=== PATIENT | female | born 1935 | race Caucasian/White ===

== ENCOUNTER 2018-09-26 10:13 | Outpatient (CLI) | payer MEDICARE, BC ==
--- NOTE | 2018-09-26 11:00 | RAD ---
PA AND LATERAL CHEST: HISTORY: Bronchitis. COMPARISON: 09/19/2017 FINDINGS: A large hiatal hernia is again seen. The heart size is stable. No lobar consolidation, pneumothorac es, or pleural effusions are identified. Postop changes in the right shoulder are again seen. POS: [facility]
== END 2018-09-26 10:14 | disposition home or self-care (01) ==
LOC: BICRAD 10:13
PROVIDERS: ATTEND Family Medicine
DX: J40 Bronchitis, not specified as acute or chronic (principal); K44.9 Diaphragmatic hernia without obstruction or gangrene; Z98.890 Other specified postprocedural states
CPT/HCPCS: 71046

== ENCOUNTER 2019-01-15 14:42 | Outpatient (CLI) | payer MEDICARE, BC ==
--- NOTE | 2019-01-15 15:41 | RAD ---
TWO VIEWS OF THE CHEST: COMPARISON: 09/26/2018. HISTORY: Chest wall pain on the left side of the chest. FINDINGS: Two views of the chest show a normal-size cardiomediastinal silhouette. There is a large hiatal caity ia. There may be a small left pleural effusion. No consolidation is seen. IMPRESSION: 1. No evidence of acute cardiopulmonary disease. 2. Small left pleural effusion. 3. Large hiatal hernia. POS: [facility]
== END 2019-01-15 14:43 | disposition home or self-care (01) ==
LOC: BICRAD 14:42
PROVIDERS: ATTEND Family Medicine
DX: R07.89 Other chest pain (principal); J90 Pleural effusion, not elsewhere classified; K44.9 Diaphragmatic hernia without obstruction or gangrene
CPT/HCPCS: 71046

== ENCOUNTER 2019-04-30 14:58 | Inpatient (IN) | payer MEDICARE, BC ==
--- NOTE | 2019-04-30 15:57 | RAD ---
Portable upright frontal chest radiograph: 04/30/2019 COMPARISON: 12/06/2012 HISTORY: Shortness of breath, asthma FINDINGS: Prominent hiatal hernia again noted. Stable atherosclerotic calcification of the aortic arc h. No lobar consolidation or alveolar edema. IMPRESSION: Large hiatal hernia. No focal consolidation or alveolar edema.
[2019-04-30 16:05] LABS: #Eosinphils 0.8 thou/uL (0.0-0.7); #Lymphocytes 1.8 thou/uL (1.20-3.40); #Monocytes 0.5 thou/uL (0.11-0.59); #Neutrophils 3.5 thou/uL (1.40-6.50); %Basophils 0.6 % (0.0-1.0); %Eosinophils 12.1 % (0.0-10.0); %Lymphocytes 27.7 % (21.0-51.0); %Monocytes 6.9 % (0.0-10.0); %Neutrophils 52.8 % (42.0-75.0); Hemoglobin 11.7 g/dL (12.0-16.0); Mean Corpuscular HGB CONC 33.7 g/dL (32.0-36.0); Mean Corpuscular Hemoglobin 31.1 pg (27.0-31.0); Mean Corpuscular Volume 92.2 fL (78.0-98.0); Mean Platelet Volume 8.4 fL (7.4-10.4); Platelet Count 143 thou/uL (130-400); RBC Distribution Width 12.9 % (11.5-14.5); Red Blood Cell (RBC) Count 3.77 mill/uL (4.20-5.40); White Blood Cell (WBC) Count 6.6 thou/uL (4.8-10.8)
[2019-04-30] MEDS ORDERED: methylPREDNISolone Sod Succ/PF 125 MG/2 ML VIAL ONE (16:16)
[2019-04-30] MEDS ORDERED: Magnesium 2 GM/50 ML BAG (IN WATER) ONE (16:16)
[2019-04-30 16:51] LABS: ALT (SGPT) 11 U/L (8-55); AST (SGOT) 21 U/L (5-34); Alkaline Phosphatase 40 U/L (40-110); Anion Gap 15 mmol/L (10-20); BUN (Urea Nitrogen) 25 mg/dL (9.8-20.1); Bilirubin, Total 0.5 mg/dL (0.2-1.2); Calc. Creatinine Clearance 0 mL/min (70-130); Carbon Dioxide 20 mmol/L (23-31); Chloride 111 mmol/L (98-107); Estimated GFR-MDRD 38; Globulin 2.7 g/dL (2.4-3.5); Glucose 110 mg/dL (83-110); Magnesium 1.5 mg/dL (1.6-2.6); Potassium 5.1 mmol/L (3.5-5.1); Protein, Total 6.7 g/dL (6.0-8.3); Sodium 141 mmol/L (136-145)
[2019-04-30 17:31] LABS: Bacteria/HPF None Seen HPF (None Seen); Bilirubin Negative (Negative); Blood, Urine Negative (Negative); Clarity Clear (Clear); Glucose, Urine (Dipstick) Normal (Negative); Leukocyte 75 Leu/uL (Negative); Nitrite Negative (Negative); Protein, Urine (Dipstick) Negative (Neg-Trace); RBC/HPF 0-3 HPF (0-3); Urobilinogen Normal mg/dL (Less than 2); WBC/HPF 0-3 HPF (0-3)
[2019-04-30] MEDS ORDERED: Senokot S 8.6-50 MG TAB PO PRN (21:44)
[2019-04-30] MEDS ORDERED: Bacteriostatic Water 30 ML VIAL FS PRN (21:55)
[2019-05-01] MEDS ORDERED: Acetaminophen 325 MG TAB ONE ×2 (00:25→11:31)
--- NOTE | 2019-05-01 03:31 | HP ---
CHIEF COMPLAINT: Shortness of breath. HISTORY OF PRESENT ILLNESS: The patient is an 84-year-old female with a past medical history of diabetes, hypertension, COPD and asthma, who presents to the hospital with shortness of breath. The patient states that she was ill, had some-shortness of breath and chest congestion for about 3 days, went to the urgent care. Chest x-ray was negative and at that time, she was given some steroids and a Z-Cb and she did have a nebulizer at home, which she has been using; however, since her symptoms worsened, her PCP asked her to come into the hospital for further evaluation. She denies any chest tightness. She normally walks with a cane and does not require any oxygen at home. PAST MEDICAL HISTORY: Diabetes, hypertension, COPD. She has high cholesterol. She has urinary incontinence. She has had paroxysmal tachycardia. She has arthritis. She has bronchial asthma. PAST SURGICAL HISTORY: She has a cardiac stent last year, hysterectomy with total bilateral salpingo-oophorectomy, breast biopsy, cholecystectomy, and AV node ablation in 2012. FAMILY HISTORY: Father was diagnosed with cancer. Mother had heart disease. SOCIAL HISTORY: She was a former smoker for about 26 years. She quit long time ago. She smoked a pack a day. No drug use. No alcohol abuse. She stays with her . She is a full code. MEDICATIONS: She takes; 1. Aspirin 81 mg daily. 2. Dulera 200/5 one inhalation twice a day. 3. Fluticasone one puff to each nostril daily. 4. She is on albuterol as needed. 5. Lisinopril/hydrochlorothiazide 20/25 1-1/2 daily. 6. Singulair 10 mg daily. 7. Simvastatin 20 mg daily. 8. VESIcare 5 mg one tab daily. 9. Lyrica 75 mg twice a day. 10. Iron 1 tab daily. 11. Colchicine 0.6 mg one p.o. twice a day. ALLERGIES: SHE IS ALLERGIC TO PENICILLIN, SHE GETS SWELLING, AND PERCODAN. REVIEW OF SYSTEMS: All negative except for the ones mentioned above in the HPI. PHYSICAL EXAMINATION: VITAL SIGNS: Temperature 97.6, O2 saturation 98%. She was initially on BiPAP and then she is currently now on 2 to 3 L, respirations are 17, heart rate of 93, blood pressure 133/63. GENERAL: She is awake, alert, and oriented x3. Does not appear in distress. HEENT: Normocephalic, atraumatic. No lymphadenopathy noted. Pupils are equal and reactive to light. CV: S1 and S2 present. No murmurs, rubs, or gallops. LUNGS: She does have some expiratory wheezing to her left lung and mild rhonchi all over. ABDOMEN: Soft and nontender. Bowel sounds are present x2. EXTREMITIES: No edema. Pedal pulses are present x2. NEUROVASCULAR: No focal deficits noted. SKIN: No cuts, lesions, or bruises noted. LABORATORY RESULTS: Are as of the following. Her chest x-ray did not indicate any acute abnormalities or any consolidation. WBCs of 6.6, hemoglobin of 11.7, hematocrit of 34.8, platelets of 143. Chemistry; sodium of 141, potassium of 5.1, BUN of 25, and creatinine 1.32. Magnesium was 1.5, and her troponin x1 was negative. Her BNP was 76.8. ASSESSMENT AND PLAN: The patient is a very pleasant 84-year-old female, who presents to the hospital with complaints of shortness of breath. 1. Acute hypoxia. This is most likely secondary to chronic obstructive pulmonary disease exacerbation versus maybe some bronchitis versus possible pneumonia. However, she does not have a white count. She does have a significant cough. We will start her on some DuoNebs. We will start her on some steroids. I will also put her on Levaquin. She has recently been on azithromycin. I am not sure if she completed the course. 2. Chronic kidney disease. We will continue to monitor. 3. History of hypertension. We will continue her home medications. 4. Hyperlipidemia. We will continue her home medications. The patient in the ER was found to have oxygenation in the 80s and she was very short of breath. At this time, she was put on BiPAP for about 3 hours per Respiratory Therapy and then she has been weaned off to just 3 L nasal cannula and she appears to be more comfortable. 5. Deep venous thrombosis prophylaxis. We will put the patient on Lovenox. Of note, when I went to interview the patient, she was unable to tell me what really brought her in. However, she was able to answer all the questions. I am not sure if she has some component of cognitive impairment; however, that has not been listed in her past medical history. She would benefit from a screening for dementia as an outpatient. Job ID: [id number]
[2019-05-01 04:22] LABS: #Lymphocytes 0.5 thou/uL (1.20-3.40); #Neutrophils 2.8 thou/uL (1.40-6.50); %Basophils 0.2 % (0.0-1.0); %Eosinophils 0.8 % (0.0-10.0); %Lymphocytes 14.6 % (21.0-51.0); %Neutrophils 83.5 % (42.0-75.0); Hemoglobin 11.3 g/dL (12.0-16.0); Mean Corpuscular HGB CONC 33.9 g/dL (32.0-36.0); Mean Corpuscular Hemoglobin 31.3 pg (27.0-31.0); Mean Corpuscular Volume 92.4 fL (78.0-98.0); Mean Platelet Volume 8.2 fL (7.4-10.4); Platelet Count 117 thou/uL (130-400); RBC Distribution Width 12.6 % (11.5-14.5); White Blood Cell (WBC) Count 3.3 thou/uL (4.8-10.8)
[2019-05-01 04:36] LABS: Anion Gap 14 mmol/L (10-20); BUN (Urea Nitrogen) 15 mg/dL (9.8-20.1); Calc. Creatinine Clearance 51 mL/min (70-130); Calcium 9.1 mg/dL (7.8-10.44); Carbon Dioxide 21 mmol/L (23-31); Chloride 110 mmol/L (98-107); Estimated GFR-MDRD 50; Glucose 142 mg/dL (83-110); Magnesium 1.8 mg/dL (1.6-2.6); Potassium 4.8 mmol/L (3.5-5.1); Sodium 140 mmol/L (136-145)
[2019-05-01] MEDS ORDERED: predniSONE 50 MG TAB PO SCH (08:00)
[2019-05-01] MEDS ORDERED: methylPREDNISolone Sod Succ 40 MG VIAL ONE (10:27)
[2019-05-01] MEDS ORDERED: Aspirin Chewable 81 MG TAB ONE (10:27)
[2019-05-01] MEDS ORDERED: Enoxaparin Sodium 40 MG/0.4 ML SYRINGE ONE (10:27)
[2019-05-01] MEDS: Aspirin 81 mg Enteric Coated Tablet PO SCH (11:21)
[2019-05-01] MEDS: Enoxaparin Sodium 40 MG/0.4 ML SYRINGE SC SCH (11:22)
[2019-05-01] MEDS: methylPREDNISolone Sod Succ 40 MG VIAL IVP SCH (11:22)
[2019-05-01] MEDS: Colchicine 0.6 MG TAB PO SCH ×2 (11:22→21:31)
[2019-05-01] MEDS: Pregabalin 75 MG CAP PO SCH ×2 (11:23→21:30)
[2019-05-01] MEDS: Trospium 20 MG TAB PO SCH ×2 (11:24→21:30)
[2019-05-01] MEDS: Acetaminophen 325 MG TAB PO PRN ×2 (11:25→16:38)
[2019-05-01 16:34] VITALS: BMI 31.3
[2019-05-01] MEDS ORDERED: FLU VACC TS2019-20(65YR UP)/PF 180 MCG/0.5 ML SYRINGE IM ONE (17:00)
[2019-05-01] MEDS ORDERED: Atorvastatin Calcium 10 MG TAB PO SCH (21:00)
[2019-05-01] MEDS ORDERED: Montelukast Sodium 10 mg Tablet PO SCH (21:00)
[2019-05-02] MEDS: Aspirin 81 mg Enteric Coated Tablet PO SCH (09:43)
[2019-05-02] MEDS: Colchicine 0.6 MG TAB PO SCH (09:43)
[2019-05-02] MEDS: Trospium 20 MG TAB PO SCH (09:43)
[2019-05-02] MEDS: methylPREDNISolone Sod Succ 40 MG VIAL IVP SCH (09:43)
[2019-05-02] MEDS: Enoxaparin Sodium 40 MG/0.4 ML SYRINGE SC SCH (09:44)
[2019-05-02] MEDS: Pregabalin 75 MG CAP PO SCH (10:06)
[2019-05-02 11:23] VITALS: BP 133/60; TEMP 98.5
--- NOTE | 2019-05-04 05:08 | PQF ---
CALEB BARRAGAN KARISHMA [id number] [facility] [id number] CLINICAL DOCUMENTATION CLARIFICATION FORM: POST DISCHARGE Addendum to original discharge summary date: ____ Late entry note date: __ DATE: 05/04/19 ATTN: Yuli Lee Please exercise your independent, professional judgment in responding to the clarification form. Clinical indicators are provided on the bottom of this form for your review Please check appropriate box(s): [ x] Acute Respiratory Failure with Hypoxia [ ] Acute On Chronic Respiratory Failure with Hypoxia [ ] ARDS (Acute Respiratory Distress Syndrome) [ ] Chronic Respiratory Failure only with Hypoxia [ ] Hypoxia [ ] Other diagnosis [ ] Unable to determine In addition, please specify: Present on Admission (POA): [ x ] Yes [ ] No [ ] Unable to determine For continuity of documentation, please document condition throughout progress notes and discharge summary. Thank You. CLINICAL INDICATORS - SIGNS / SYMPTOMS / LABS ED Provider p1 04/30 Pt presents for evaluation of SOB ED Provider p2 04/30 Vital Sign : BP 96/65, Pulse 109, Resp 26 ED Provider p3 04/30 Pt had severe dyspnea and audible wheezing and crackles bilaterally ED Provider p4 04/30 - Primary Diagnosis COPD exacerbation, Asthma Exacerbation, Respiratory Distress H&P p1 04/30 Dr Dangelo Acute hypoxia mist likely secondary tp COPD exacerbation vs some bronchitis vs possible Pneumonia RISK FACTORS ED Provider p1 04/30 84 year-old Female ED Provider p1 04/30 COPD ED Provider p1 04/30 Asthma H&P p1 04/30 Former Smoker TREATMENTS: ED Provider p2 04/30 On Bipap SEP 17 Duoneb 3ml via Nebulize SEP 17 IV Levaquin (This form is maintained as a part of the permanent medical record) 2014 [employer] All Rights Reserved [email or web address] [not provided] MTDD
--- NOTE | 2019-05-04 05:15 | PQF ---
CALEB BARRAGAN KARISHMA [id number] [facility] [id number] CLINICAL DOCUMENTATION CLARIFICATION FORM: POST DISCHARGE Addendum to original discharge summary date: ____ Late entry note date: __ DATE: 05/04/19 ATTN: Yuli Moore Please exercise your independent, professional judgment in responding to the clarification form. Clinical indicators are provided on the bottom of this form for your review In your clinical opinion based on clinical findings below, can you please specify the etiology of Hypoxia if due to: Please check appropriate box(s): [ ] COPD Exacerbation [ ] Asthma Exacerbation [ ] Pneumonia [ ] Other condition, please specify: [x ] Unable to determine For continuity of documentation, please document condition throughout progress notes and discharge summary. Thank You. CLINICAL INDICATORS - SIGNS / SYMPTOMS / LABS ED Provider p1 04/30 Pt presents for evaluation of SOB ED Provider p2 04/30 Vital Sign : BP 96/65, Pulse 109, Resp 26 ED Provider p3 04/30 Pt had severe dyspnea and audible wheezing and crackles bilaterally ED Provider p4 04/30 - Primary Diagnosis COPD exacerbation, Asthma Exacerbation, Respiratory Distress H&P p1 04/30 Dr Dangelo Acute hypoxia mist likely secondary tp COPD exacerbation vs some bronchitis vs possible Pneumonia RISK FACTORS ED Provider p1 04/30 84 year-old Female ED Provider p1 04/30 COPD ED Provider p1 04/30 Asthma H&P p1 04/30 Former Smoker TREATMENTS: ED Provider p2 04/30 On Bipap SEP 17 Duoneb 3ml via Nebulize SEP 17 IV Levaquin (This form is maintained as a part of the permanent medical record) 2014 [employer]. All Rights Reserved [email or web address] [not provided] MTDD
== END 2019-05-02 14:33 | disposition home or self-care (01) | DRG 189 ==
LOC: ERS 14:58 → ERHOLD 19:51 → 2NO 05-01 15:55
PROVIDERS: ADMIT Family Medicine; ATTEND Family Medicine
PROC: 5A09357 Assistance with Respiratory Ventilation, Less than 24 Consecutive Hours, Continuous Positive Airway Pressure (ICD-10-PCS; principal; 2019-04-30)
DX: J96.01 Acute respiratory failure with hypoxia (principal); E78.00 Pure hypercholesterolemia, unspecified; M19.90 Unspecified osteoarthritis, unspecified site; N18.9 Chronic kidney disease, unspecified; I12.9 Hypertensive chronic kidney disease with stage 1 through stage 4 chronic kidney disease, or unspecified chronic kidney disease; J44.9 Chronic obstructive pulmonary disease, unspecified; E78.5 Hyperlipidemia, unspecified; Z79.82 Long term (current) use of aspirin; Z79.899 Other long term (current) drug therapy; Z95.5 Presence of coronary angioplasty implant and graft; Z90.710 Acquired absence of both cervix and uterus; Z90.722 Acquired absence of ovaries, bilateral; Z87.891 Personal history of nicotine dependence; Z88.0 Allergy status to penicillin; Z88.8 Allergy status to other drugs, medicaments and biological substances
CPT/HCPCS: 36415; 36416; 71045; 80048; 80053; 81003; 81015; 83735; 83880; 84484; 85025; 87040; 87086; 87149; 87804; 90471; 90662; 93005; 94640; 94660; 94760; 96365; 96367; 96375; 99213; 99214; G0008; G0463; J1650; J1956; J2920; J2930; J3475; J7620

== ENCOUNTER 2019-05-15 04:55 | Inpatient (IN) | payer MEDICARE, BC ==
[2019-05-15] MEDS ORDERED: Albuterol Sulfate 2.5 mg/0.5 ml Neb ONE (05:03)
[2019-05-15] MEDS ORDERED: Albuterol Sulfate 2.5 mg/3 ml Neb ONE (05:03)
[2019-05-15] MEDS ORDERED: methylPREDNISolone Sod Succ/PF 125 MG/2 ML VIAL ONE (05:04)
[2019-05-15 05:21] LABS: #Basophils 0.1 thou/uL (0.0-0.2); #Eosinphils 1.2 thou/uL (0.0-0.7); #Lymphocytes 1.7 thou/uL (1.20-3.40); #Monocytes 0.5 thou/uL (0.11-0.59); #Neutrophils 4.4 thou/uL (1.40-6.50); %Basophils 0.9 % (0.0-1.0); %Eosinophils 14.8 % (0.0-10.0); %Lymphocytes 21.5 % (21.0-51.0); %Monocytes 6.4 % (0.0-10.0); %Neutrophils 56.5 % (42.0-75.0); Hemoglobin 12.3 g/dL (12.0-16.0); Mean Corpuscular HGB CONC 33.3 g/dL (32.0-36.0); Mean Corpuscular Hemoglobin 31.4 pg (27.0-31.0); Mean Corpuscular Volume 94.1 fL (78.0-98.0); Mean Platelet Volume 7.7 fL (7.4-10.4); Platelet Count 145 thou/uL (130-400); RBC Distribution Width 12.7 % (11.5-14.5); Red Blood Cell (RBC) Count 3.91 mill/uL (4.20-5.40); White Blood Cell (WBC) Count 7.9 thou/uL (4.8-10.8)
[2019-05-15] MEDS ORDERED: Acetaminophen 500 MG TAB ONE (05:42)
[2019-05-15 05:51] LABS: ALT (SGPT) 10 U/L (8-55); AST (SGOT) 14 U/L (5-34); Albumin 4.1 g/dL (3.4-4.8); Alkaline Phosphatase 43 U/L (40-110); Anion Gap 14 mmol/L (10-20); BUN (Urea Nitrogen) 19 mg/dL (9.8-20.1); Bilirubin, Total 0.6 mg/dL (0.2-1.2); CK (CPK) 63 U/L (29-168); Calc. Creatinine Clearance 0 mL/min (70-130); Calcium 9.3 mg/dL (7.8-10.44); Carbon Dioxide 24 mmol/L (23-31); Chloride 110 mmol/L (98-107); Estimated GFR-MDRD 38; Globulin 2.6 g/dL (2.4-3.5); Glucose 110 mg/dL (83-110); Potassium 4.6 mmol/L (3.5-5.1); Protein, Total 6.7 g/dL (6.0-8.3); Sodium 143 mmol/L (136-145)
--- NOTE | 2019-05-15 08:01 | HP ---
PRIMARY CARE PROVIDER: Don Whiet MD. HISTORY OF PRESENT ILLNESS: Referred to the [facility] hospitalist Service by [facility]. The patient recently hospitalized with COPD exacerbation. On discharge, she was seen by her PCP, got antibiotics, steroids, nebulizers. She continues to complain of wheezing, shortness of breath. No productive cough. No fever, no chills. PAST MEDICAL HISTORY: Diabetes mellitus type 2, hypertension, COPD, elevated cholesterol, history of paroxysmal atrial tachycardia. PAST SURGICAL HISTORY: She had a cardiac stent in the recent past, AV jose angel ablation in 2012, cholecystectomy, breast biopsy, hysterectomy with bilateral salpingo-oophorectomy. FAMILY HISTORY: Father diagnosed with cancer. Mother had heart disease. SOCIAL HISTORY: Former smoker, quit long time ago. No drugs. No alcohol. Lives with her . Full code status. is surrogate decision maker. CURRENT MEDICATIONS: 1. Aspirin 81 mg a day. 2. Dulera 200/5 two puffs twice a day. 3. Lisinopril hydrochlorothiazide 20/25 one-half tablet a day. 4. Singulair 10 mg a day. 5. VESIcare 5 mg twice a day. 6. Nabumetone 500 mg twice a day. 7. Lyrica 75 mg twice a day. 8. Nexium 40 mg a day. 9. Ferrous sulfate 325 mg a day. 10. Colcrys 0.6 mg twice a day. 11. Nebulizers every 3 hours p.r.n. ALLERGIES: PENICILLIN AND PERCODAN. REVIEW OF SYSTEMS: GENERAL: She has a headache at the present time. Has occasional lightheaded spells. No fainting. EYES: She has had a history of occasional double vision, none recently. Wears glasses. EARS, NOSE, AND THROAT: Hard of hearing. No pain or drainage from her ears. No nasal bleeding. No trouble swallowing. No oral pain. CARDIAC: No chest pain, paroxysmal nocturnal dyspnea, orthopnea. RESPIRATIONS: See present illness. GASTROINTESTINAL: No nausea, vomiting, diarrhea, or constipation. GENITOURINARY: She is incontinent. No bleeding. No dysuria. MUSCULOSKELETAL: No pain or swelling in her arms or legs. NEUROLOGIC: No strokes, seizures, or focal weakness. PSYCHIATRIC: No anxiety or depression. SKIN: No bruising, bleeding or rash. HEME/LYMPH: No tender or swollen lymph nodes in axilla, inguinal, cervical area. PHYSICAL EXAMINATION: VITAL SIGNS: Blood pressure 168/72, pulse 88, respirations 20 to 32, temperature 98.5, 95% saturation on 4 L O2. HEAD, EYES, EARS, NOSE, AND THROAT: Pupils are equal, round, and reactive. Extraocular movements are intact. Sclerae are white. Tympanic membranes clear. Nose clear. Oral mucous membranes are wet. Dental hygiene is adequate. NECK: Supple without jugular venous distention, adenopathy, or thyromegaly. She has very loud stridor across her neck that radiates into her chest. RESPIRATORY: No dullness to percussion. No focal findings. She has diffuse wheezing which may in fact be radiated stridor from her neck, it is difficult to ascertain. HEART: Regular rate and rhythm. First and second second heart sounds clear. No murmurs or gallops. ABDOMEN: Soft, bowel sounds are normal. There is no hepatosplenomegaly. No mass. No rebound. EXTREMITIES: Reveal no cyanosis, clubbing, or edema. Pulses, carotid, radial, femoral and dorsalis pedis pulses palpable and symmetric. SKIN: Warm and dry without bruises or rash. HEME/LYMPH: No tender or swollen lymph nodes in axilla, inguinal, cervical area. NEUROLOGIC: Cranial nerves 2 through 12 are intact. Moves all extremities. Sensations intact. IMAGING STUDIES: Chest x-ray reviewed by me, hyperinflation with no infiltrate, CHF. EKG reviewed by me, sinus rhythm, Q-waves in the anterior precordial leads consistent with old anterior myocardial infarction, left axis deviation. LABORATORY DATA: Comprehensive metabolic profile: Creatinine 1.33, chloride 110, otherwise normal. Cardiac enzymes normal. BNP 124. CBCs unremarkable. ADMITTING DIAGNOSES: 1. Acute respiratory failure with hypoxemia. 2. Chronic obstructive pulmonary disease exacerbation. 3. Stridor across neck. 4. Hypertension. 5. Coronary artery disease. 6. Chronic back pain. PLAN: Steroids, antibiotics, nebs, Pulmonology consult. Continue home medicines. Job ID: [id number]
[2019-05-15 08:06] VITALS: BMI 30.6
[2019-05-15] MEDS ORDERED: Albuterol Sulfate 2.5 mg/3 ml Neb NEB PRN (08:06)
[2019-05-15] MEDS ORDERED: Zolpidem Tartrate 5 MG TAB PO PRN (08:06)
[2019-05-15] MEDS ORDERED: Ondansetron ODT 4 MG TAB PO PRN (08:06)
[2019-05-15] MEDS ORDERED: Bacteriostatic Water 30 ML VIAL FS PRN (08:18)
--- NOTE | 2019-05-15 09:22 | RAD ---
FRONTAL VIEW CHEST: INDICATIONS: Dyspnea. COMPARISON: 04/30/2019 FINDINGS: Redemonstration of a hiatal hernia superimposed upon grossly stable sized cardiac silhouette. There i s interstitial prominence of each lung. Vascular calcification is again seen. IMPRESSION: Stable chest. POS: [facility]
[2019-05-15] MEDS: Albuterol Sulfate 2.5 mg/3 ml Neb NEB SCH ×2 (10:05→11:09)
[2019-05-15] MEDS ORDERED: methylPREDNISolone Sod Succ 40 MG VIAL IVP SCH (12:00)
[2019-05-15] MEDS: Azithromycin 500 MG in Sodium Chloride 0.9% 250 ML 250 ML IVPB SCH (12:00)
[2019-05-15] MEDS: Enoxaparin Sodium 40 MG/0.4 ML SYRINGE SC SCH (12:02)
[2019-05-15] MEDS: methylPREDNISolone Sod Succ 40 MG VIAL IVP SCH ×2 (12:02→19:27)
[2019-05-15] MEDS: Acetaminophen 325 MG TAB PO PRN ×2 (12:20→19:27)
--- NOTE | 2019-05-15 13:28 | CON ---
DATE OF CONSULTATION: HISTORY OF PRESENT ILLNESS: Albina Pennington is an 84-year-old female, who was brought to the hospital with shortness of breath after she experienced no improvement at home with a nebulizer machine. She had quit smoking 40 years ago and has severe limitation to activities. She can barely walk, on a good day 40 feet without getting extremely dyspneic. She denies any chest pain, chills, sweats, or hemoptysis. She has recently came back from [place] after she saw a commodity analyst for a hiatal hernia related issues. PAST MEDICAL HISTORY: Pertinent for COPD, chronic asthma, diabetes, hypertension, unknown musculoskeletal problem, ataxia, previous spinal stenosis. PAST SURGICAL HISTORY: Including cholecystectomy, stent, colonoscopy. HOME MEDICATIONS: Include 1. Lisinopril 05/04. 2. Flonase. 3. Nexium 25. 4. Colchicine 0.6. 5. Aspirin. 6. Lyrica 75. 7. Nabumetone 500. 8. Singulair 10. 9. Symbicort. ALLERGIES: PENICILLIN. REVIEW OF SYSTEMS: Otherwise, 10-point negative. PHYSICAL EXAMINATION: VITAL SIGNS: Saturations are 98% on 4 L, respiratory rate 20, temperature 97, blood pressure 160/75. CHEST: Decreased breath sounds without any wheezing. CARDIAC: Normal S1, S2. No gallops. ABDOMEN: No masses. LABORATORY DATA: Unremarkable. Chest x-ray shows no acute infiltrates. BNP is normal. IMPRESSION: Chronic obstructive pulmonary disease, respiratory failure, former smoker, asthma, unknown musculoskeletal problem, carotid disease and dysphagia. I have added Dulera to her present treatment. Try and do a bedside PFT. May consider noninvasive ventilation at home depending upon the PFT. Consultation note, 70 minutes, 50% direct patient care. Job ID: [id number]
[2019-05-15] MEDS: Mometasone/Formoterol 120 PUFF INHALER INH SCH (18:34)
[2019-05-16] MEDS: methylPREDNISolone Sod Succ 40 MG VIAL IVP SCH ×4 (00:01→17:43)
[2019-05-16 06:14] LABS: #Basophils 0.1 thou/uL (0.0-0.2); #Eosinphils 0.1 thou/uL (0.0-0.7); #Lymphocytes 0.8 thou/uL (1.20-3.40); #Monocytes 0.1 thou/uL (0.11-0.59); #Neutrophils 6.8 thou/uL (1.40-6.50); %Basophils 0.7 % (0.0-1.0); %Eosinophils 0.7 % (0.0-10.0); %Monocytes 1.7 % (0.0-10.0); %Neutrophils 86.9 % (42.0-75.0); Hemoglobin 11.2 g/dL (12.0-16.0); Mean Corpuscular HGB CONC 33.8 g/dL (32.0-36.0); Mean Corpuscular Hemoglobin 31.6 pg (27.0-31.0); Mean Corpuscular Volume 93.5 fL (78.0-98.0); Mean Platelet Volume 8.2 fL (7.4-10.4); Platelet Count 140 thou/uL (130-400); RBC Distribution Width 12.8 % (11.5-14.5); Red Blood Cell (RBC) Count 3.55 mill/uL (4.20-5.40); White Blood Cell (WBC) Count 7.8 thou/uL (4.8-10.8)
[2019-05-16 06:31] LABS: Anion Gap 12 mmol/L (10-20); BUN (Urea Nitrogen) 25 mg/dL (9.8-20.1); Calc. Creatinine Clearance 47 mL/min (70-130); Calcium 8.8 mg/dL (7.8-10.44); Carbon Dioxide 22 mmol/L (23-31); Chloride 111 mmol/L (98-107); Estimated GFR-MDRD 51; Glucose 144 mg/dL (83-110); Potassium 4.4 mmol/L (3.5-5.1); Sodium 141 mmol/L (136-145)
[2019-05-16] MEDS: Mometasone/Formoterol 120 PUFF INHALER INH SCH ×2 (06:52→19:46)
[2019-05-16] MEDS: Acetaminophen 325 MG TAB PO PRN ×2 (08:03→17:51)
[2019-05-16] MEDS: Enoxaparin Sodium 40 MG/0.4 ML SYRINGE SC SCH (08:04)
--- NOTE | 2019-05-16 09:48 | PDOC.HOSPP ---
- Subjective Encounter Date: 05/16/19 Encounter Time: 09:46 Subjective: much less sob - Objective Vital Signs & Weight: Vital Signs (12 hours) Temp Pulse Resp BP Pulse Ox 05/16/19 07:39 98.2 F 97 22 H 153/77 H 94 L 05/16/19 06:56 98 05/16/19 06:55 91 20 98 05/16/19 06:52 91 20 98 05/16/19 04:07 97.9 F 87 20 157/73 H 100 05/15/19 23:55 98.3 F 92 20 151/77 H 100 Weight Weight 162 lb 3.2 oz I&O: 05/15/19 05/16/19 05/17/19 06:59 06:59 06:59 Intake Total 360 Balance 360 Result Diagrams: 05/16/19 05:48 05/16/19 05:48 Hospitalist ROS - Medication Medications: Active Medications Generic Name Dose Route Start Last Admin Trade Name Freq PRN Reason Stop Dose Admin Acetaminophen 650 mg 05/15/19 08:06 05/16/19 08:03 Tylenol PO 650 mg Q4H PRN Administration Headache/Fever/Mild Pain (1-3) Albuterol/Ipratropium 3 ml 05/15/19 13:00 05/16/19 06:55 Duoneb NEB 3 ml [id number] JIGNESH Administration Enoxaparin Sodium 40 mg 05/15/19 09:00 05/16/19 08:04 Lovenox SC 40 mg 0900 JIGNESH Administration Azithromycin 500 mg/ Sodium 250 mls @ 250 mls/hr 05/15/19 09:00 05/15/19 12: 00 Chloride IVPB 250 mls 0900 JIGNESH Administration Methylprednisolone Sodium Succinate 40 mg 05/15/19 12:00 05/16/19 05:47 Solu-Medrol IVP 40 mg Q6HR JIGNESH Administration Mometasone Furoate/Formoterol Fumar 2 puff 05/15/19 18:30 05/16/19 06:52 Dulera 200 Mcg/5 Mcg Inhaler INH 2 puff BID-RT JIGNESH Administration Sterile Water 1 ml 05/15/19 08:18 05/16/19 00:00 Bacteriostatic Water FS 1 ml PRN PRN Administration RECONSTITUTION - Exam General Appearance: NAD ENT - other findings: no stridor Neck: no JVD Heart: RRR, no murmur Respiratory: CTAB Gastrointestinal: soft, normal bowel sounds Extremities: no edema Hosp A/P (1) Acute respiratory failure with hypoxia Code(s): J96.01 - ACUTE RESPIRATORY FAILURE WITH HYPOXIA Status: Acute (2) COPD exacerbation Code(s): J44.1 - CHRONIC OBSTRUCTIVE PULMONARY DISEASE W (ACUTE) EXACERBATION Status: Acute (3) CAD (coronary artery disease) Code(s): I25.10 - ATHSCL HEART DISEASE OF [place] CORONARY ARTERY W/O ANG PCTRS Status: Acute Qualifiers: Coronary Disease-Associated Artery/Lesion type: [place] artery [place] vs. transplanted heart: [place] heart Associated angina: without angina Qualified Code(s): I25.10 - Atherosclerotic heart disease of [place] coronary artery without angina pectoris (4) Stridor Code(s): R06.1 - STRIDOR Status: Acute - Plan stridor resolved, off EDNA x 24 hrs-suspect angioedma due to EDNA cont nebs , steroids, etc discuussed with Pulmonology
[2019-05-16] MEDS: Azithromycin 500 MG in Sodium Chloride 0.9% 250 ML 250 ML IVPB SCH (10:03)
--- NOTE | 2019-05-16 10:10 | PRG ---
DATE OF SERVICE: 05/16/2019 SUBJECTIVE: This morning, she is somewhat better. OBJECTIVE: VITAL SIGNS: Temperature 98, pulse 97, respiratory rate _16 appears to be 1 L, blood pressure _120\76. CHEST: Minimal expiratory wheezing. CARDIAC: Normal S1 and S2. No gallops. ABDOMEN: No masses. LABORATORY DATA: Unremarkable. PFT bedside showed an FEV1 of 54% consistent with moderately severe COPD. Chest x-ray shows barely cardiomegaly. IMPRESSION: Chronic obstructive pulmonary disease, severe deconditioning. PLAN: Continue PT, supportive care. Switch over to oral prednisone. Disposition, home in the next several days hopefully. Job ID: [id number] [facility]
[2019-05-16] MEDS: Pregabalin 75 MG CAP PO SCH (21:08)
[2019-05-16] MEDS: Nabumetone 500 MG TAB PO SCH (21:08)
[2019-05-16] MEDS: Colchicine 0.6 MG TAB PO SCH (21:08)
[2019-05-16] MEDS: Trospium 20 MG TAB PO SCH (21:09)
[2019-05-17] MEDS: methylPREDNISolone Sod Succ 40 MG VIAL IVP SCH ×2 (00:26→06:02)
[2019-05-17] MEDS: Mometasone/Formoterol 120 PUFF INHALER INH SCH ×2 (07:12→19:20)
[2019-05-17] MEDS: Aspirin 81 mg Enteric Coated Tablet PO SCH (08:18)
[2019-05-17] MEDS: Colchicine 0.6 MG TAB PO SCH ×2 (08:18→21:17)
[2019-05-17] MEDS: Ferrous Sulfate 325 MG TAB PO SCH (08:18)
[2019-05-17] MEDS: Trospium 20 MG TAB PO SCH ×2 (08:18→21:18)
[2019-05-17] MEDS: Nabumetone 500 MG TAB PO SCH ×2 (08:18→21:17)
[2019-05-17] MEDS: Pregabalin 75 MG CAP PO SCH ×2 (08:19→21:17)
[2019-05-17] MEDS: Enoxaparin Sodium 40 MG/0.4 ML SYRINGE SC SCH (08:20)
[2019-05-17] MEDS: Azithromycin 500 MG in Sodium Chloride 0.9% 250 ML 250 ML IVPB SCH (08:20)
[2019-05-17] MEDS ORDERED: Non-Formulary Item 1 EACH (Esomeprazole Magnesium [Nexium] 20 MG) PO SCH (09:00)
--- NOTE | 2019-05-17 09:53 | PRG ---
DATE OF SERVICE: 05/17/2019 SUBJECTIVE: Albina Pennington is better this morning. She is walking in the halls without being short of breath. OBJECTIVE: VITAL SIGNS: Sats are 94% RA blood pressure 120/65. CHEST: No wheezing or stridor. CARDIAC: Normal S1 and S2. No gallops. ABDOMEN: No mass. IMPRESSION: 1. Chronic obstructive pulmonary disease. 2. Former smoker. 3. Severe deconditioning. 4. Encephalopathy. PLAN: She can be discharged home on oral medication. Follow up in the office in a month. Job ID: [id number] MTDD
--- NOTE | 2019-05-17 10:20 | PDOC.HOSPP ---
- Subjective Encounter Date: 05/17/19 Encounter Time: 10:17 Subjective: no sob - Objective Vital Signs & Weight: Vital Signs (12 hours) Temp Pulse Resp BP BP Pulse Ox 05/17/19 08:00 98.1 F 80 20 121/65 95 05/17/19 07:14 98 05/17/19 07:11 71 20 98 05/17/19 04:00 97.7 F 80 18 123/72 98 05/17/19 00:38 81 16 05/17/19 00:00 98.2 F 81 18 136/68 100 Weight Weight 162 lb 3.2 oz I&O: 05/16/19 05/17/19 05/18/19 06:59 06:59 06:59 Intake Total 360 240 Balance 360 240 Result Diagrams: 05/16/19 05:48 05/16/19 05:48 Hospitalist ROS - Medication Medications: Active Medications Generic Name Dose Route Start Last Admin Trade Name Freq PRN Reason Stop Dose Admin Acetaminophen 650 mg 05/15/19 08:06 05/16/19 17:51 Tylenol PO 650 mg Q4H PRN Administration Headache/Fever/Mild Pain (1-3) Albuterol/Ipratropium 3 ml 05/15/19 13:00 05/17/19 07:11 Duoneb NEB 3 ml [id number] JIGNESH Administration Aspirin 81 mg 05/17/19 09:00 05/17/19 08:18 Ecotrin PO 81 mg DAILY JIGNESH Administration Colchicine 0.6 mg 05/16/19 21:00 05/17/19 08:18 Colchicine PO 0.6 mg BID JIGNESH Administration Enoxaparin Sodium 40 mg 05/15/19 09:00 05/17/19 08:20 Lovenox SC 40 mg 09 JIGNESH Administration Ferrous Sulfate 325 mg 05/17/19 09:00 05/17/19 08:18 Feosol PO 325 mg DAILY JIGNESH Administration Mometasone Furoate/Formoterol Fumar 2 puff 05/15/19 18:30 05/17/19 07:12 Dulera 200 Mcg/5 Mcg Inhaler INH 2 puff BID-RT JIGNESH Administration Nabumetone 500 mg 05/16/19 21:00 05/17/19 08:18 Relafen PO 500 mg BID JIGNESH Administration Pantoprazole Sodium 40 mg 05/17/19 09:00 05/17/19 08:18 Protonix PO 40 mg DAILY JIGNESH Administration Pregabalin 75 mg 05/16/19 21:00 05/17/19 08:19 Lyrica PO 75 mg BID JIGNESH Administration Sodium Chloride 10 ml 05/16/19 21:00 05/17/19 08:19 Flush - Normal Saline IVF 10 ml Q12HR JIGNESH Administration Sterile Water 1 ml 05/15/19 08:18 05/16/19 00:00 Bacteriostatic Water FS 1 ml PRN PRN Administration RECONSTITUTION Trospium 20 mg 05/16/19 21:00 05/17/19 08:18 Trospium PO 20 mg BID JIGNESH Administration - Exam ENT - other findings: no stridor Heart: RRR, murmur present, III/IV Respiratory: CTAB Gastrointestinal: soft, normal bowel sounds Extremities: no edema Hosp A/P (1) Acute respiratory failure with hypoxia Code(s): J96.01 - ACUTE RESPIRATORY FAILURE WITH HYPOXIA Status: Acute (2) COPD exacerbation Code(s): J44.1 - CHRONIC OBSTRUCTIVE PULMONARY DISEASE W (ACUTE) EXACERBATION Status: Acute (3) CAD (coronary artery disease) Code(s): I25.10 - ATHSCL HEART DISEASE OF [place] CORONARY ARTERY W/O ANG PCTRS Status: Acute Qualifiers: Coronary Disease-Associated Artery/Lesion type: [place] artery [place] vs. transplanted heart: [place] heart Associated angina: without angina Qualified Code(s): I25.10 - Atherosclerotic heart disease of [place] coronary artery without angina pectoris (4) Stridor Code(s): R06.1 - STRIDOR Status: Resolved - Plan stridor resolved, off EDNA x 24 hrs-suspect angioedma due to EDNA po antibx, prednisone, nebs discussed with Pulmonology
[2019-05-17] MEDS: Acetaminophen 325 MG TAB PO PRN (14:52)
--- NOTE | 2019-05-17 15:47 | PDOC.EVN ---
Event Note - Event Note Event Note: sat ok on RA. DC Jordan if still OK
[2019-05-18] MEDS ORDERED: predniSONE 20 MG TAB PO SCH (08:00)
[2019-05-18] MEDS: Mometasone/Formoterol 120 PUFF INHALER INH SCH (08:22)
[2019-05-18 08:43] VITALS: TEMP 98.3
[2019-05-18] MEDS ORDERED: Azithromycin 250 MG TAB PO SCH (09:00)
--- NOTE | 2019-05-18 09:16 | PRG ---
DATE OF SERVICE: 05/18/2019 SUBJECTIVE: This morning, she is better. She has less cough and less shortness of breath. OBJECTIVE: VITAL SIGNS: Saturations are 90% on room air, respirations 16, temperature 98, blood pressure 122/63. CHEST: Occasional inspiratory wheeze. CARDIAC: Normal S1 and S2. ABDOMEN: Negative mass. Soft. IMPRESSION: Chronic obstructive pulmonary disease, former smoker, bronchitis. PLAN: She can be discharged home any time. Follow up in the office in several weeks. Job ID: [id number]
[2019-05-18] MEDS: Colchicine 0.6 MG TAB PO SCH (09:42)
[2019-05-18] MEDS: Aspirin 81 mg Enteric Coated Tablet PO SCH (09:42)
[2019-05-18] MEDS: Pregabalin 75 MG CAP PO SCH (09:44)
[2019-05-18] MEDS: Nabumetone 500 MG TAB PO SCH (09:44)
[2019-05-18] MEDS: Trospium 20 MG TAB PO SCH (09:46)
[2019-05-18] MEDS: Enoxaparin Sodium 40 MG/0.4 ML SYRINGE SC SCH (09:46)
[2019-05-18] MEDS: Ferrous Sulfate 325 MG TAB PO SCH (09:49)
[2019-05-18 11:42] VITALS: BP 143/63
--- NOTE | 2019-05-18 20:57 | DIS ---
DATE OF ADMISSION: 05/15/2019 DATE OF DISCHARGE: 05/18/2019 REASON FOR HOSPITALIZATION: Shortness of breath. SIGNIFICANT FINDINGS: The patient was found to have acute COPD exacerbation. PROCEDURES PERFORMED AND TREATMENTS RENDERED: The patient was admitted to medical unit and had Pulmonology consultation - please see full consultation and progress notes for details. Please see full history and physical and progress notes from internal medicine physician for details on hospital course. The patient initially started on broad-spectrum antibiotic coverage with specific for community-acquired pulmonary organisms. The patient started on steroids. The patient improved with maximum medical therapy and was weaned from oxygen. I had the patient ambulated on room air on 05/18/2019 and she maintained an O2 saturation of 91%. The patient was recommended safe for discharge by Pulmonology with close followup in the outpatient setting. I recommended that the patient see Pulmonology in the next 1 to 2 weeks in the outpatient clinic. The patient recommended to complete a full course of oral antibiotics. The patient recommended to complete a full tapering dose of oral steroids. The patient recommended to continue to use inhaled breathing treatments. The patient is recommended to return to acute care hospital immediately if signs or symptoms return, worsen, or any other new symptoms occur. DISCHARGE MEDICATIONS: Please see full discharge medication list for details. TIME SPENT: Greater than 35 minutes spent coordinating care and discharge process for this patient. Job ID: [id number]
== END 2019-05-18 11:43 | disposition home or self-care (01) | DRG 189 ==
LOC: ERS 04:55 → T4-B 06:29
PROVIDERS: ADMIT Family Medicine; ATTEND Family Medicine
DX: J96.01 Acute respiratory failure with hypoxia (principal); J44.1 Chronic obstructive pulmonary disease with (acute) exacerbation; I47.1 Supraventricular tachycardia; G93.40 Encephalopathy, unspecified; E11.9 Type 2 diabetes mellitus without complications; I10 Essential (primary) hypertension; E78.00 Pure hypercholesterolemia, unspecified; R13.10 Dysphagia, unspecified; I25.10 Atherosclerotic heart disease of native coronary artery without angina pectoris; G89.29 Other chronic pain; Z90.49 Acquired absence of other specified parts of digestive tract; Z90.710 Acquired absence of both cervix and uterus; Z88.0 Allergy status to penicillin; Z88.8 Allergy status to other drugs, medicaments and biological substances; Z87.891 Personal history of nicotine dependence
CPT/HCPCS: 36415; 71045; 80048; 80053; 82550; 83605; 83880; 84484; 85025; 93005; 94010; 94640; 94644; 96374; 99214; G0463; J0456; J1650; J2920; J2930; J7050; J7512; J7611; J7620

== ENCOUNTER 2019-07-11 08:16 | Inpatient (IN) | payer MEDICARE, BC ==
[2019-07-11] MEDS ORDERED: Albuterol Sulfate 2.5 mg/3 ml Neb ONE ×4 (08:41→13:07)
[2019-07-11] MEDS ORDERED: methylPREDNISolone Sod Succ/PF 125 MG/2 ML VIAL ONE (08:43)
[2019-07-11 09:05] LABS: #Basophils 0.1 thou/uL (0.0-0.2); #Lymphocytes 1.8 thou/uL (1.20-3.40); #Monocytes 0.4 thou/uL (0.11-0.59); #Neutrophils 4.5 thou/uL (1.40-6.50); %Basophils 0.8 % (0.0-1.0); %Eosinophils 13.1 % (0.0-10.0); %Lymphocytes 23.2 % (21.0-51.0); %Monocytes 5.5 % (0.0-10.0); %Neutrophils 57.5 % (42.0-75.0); Hemoglobin 13.2 g/dL (12.0-16.0); Mean Corpuscular HGB CONC 33.5 g/dL (32.0-36.0); Mean Corpuscular Hemoglobin 31.9 pg (27.0-31.0); Mean Corpuscular Volume 95.1 fL (78.0-98.0); Mean Platelet Volume 8.1 fL (7.4-10.4); Platelet Count 202 thou/uL (130-400); RBC Distribution Width 12.3 % (11.5-14.5); Red Blood Cell (RBC) Count 4.15 mill/uL (4.20-5.40); White Blood Cell (WBC) Count 7.9 thou/uL (4.8-10.8)
--- NOTE | 2019-07-11 09:07 | RAD ---
EXAM: Single view of the chest HISTORY: Dyspnea and shortness of breath COMPARISON: 05/15/2019 FINDINGS: Single view of the chest shows a normal sized cardiomediastinal silhouette. There is a lar ge hiatal hernia. Atherosclerotic calcifications are seen in the aorta. There is no evidence of consolidation, mass, or pleural effusion. The bones are unremarkable. IMPRESSION: Large hiatal hernia
[2019-07-11 09:28] LABS: ALT (SGPT) 10 U/L (8-55); AST (SGOT) 20 U/L (5-34); Albumin 4.2 g/dL (3.4-4.8); Alkaline Phosphatase 56 U/L (40-110); Anion Gap 15 mmol/L (10-20); BUN (Urea Nitrogen) 33 mg/dL (9.8-20.1); Bilirubin, Total 0.7 mg/dL (0.2-1.2); Calc. Creatinine Clearance 0 mL/min (70-130); Calcium 9.2 mg/dL (7.8-10.44); Carbon Dioxide 23 mmol/L (23-31); Chloride 107 mmol/L (98-107); Estimated GFR-MDRD 33; Glucose 181 mg/dL (83-110); Potassium 4.7 mmol/L (3.5-5.1); Protein, Total 7.2 g/dL (6.0-8.3); Sodium 140 mmol/L (136-145)
[2019-07-11] MEDS ORDERED: Albuterol Sulfate 2.5 mg/0.5 ml Neb ONE (13:07)
[2019-07-11] MEDS ORDERED: Magnesium 2 GM/50 ML BAG (IN WATER) ONE (13:11)
[2019-07-11] MEDS ORDERED: cefTRIAXone\\ROCEPHIN 1 GM VIAL ONE (16:19)
[2019-07-11] MEDS ORDERED: Acetaminophen 325 MG TAB ONE (16:19)
--- NOTE | 2019-07-11 16:46 | HP ---
CHIEF COMPLAINT: Shortness of breath and cough. HISTORY OF PRESENT ILLNESS: This patient is an 84-year-old female with a history of COPD, who has been admitted here twice in the past couple of months, once in April, again in May. The patient reported that when she left in May, she was doing relatively well. She subsequently had some recurrence of her breathing difficulties and hence did come back to the hospital. She saw Dr. Coy who is her business integration manager. She subsequently had some treatment and tended to get better. However, around , she started having some worsening shortness of breath and cough again. Normally, the patient is able to get up and around a bit, but her reported that she could not do anything physical and in fact, she is down to the point now where he has to take her to the bathroom in a wheelchair because of her breathing issues. She presented to Dr. White's office yesterday and was prescribed cefdinir, prednisone, DuoNeb, Flagyl, and Diflucan for possible thrush. She was reporting sore throat as well. She has really not had much of a chance to even use these medications and became worse and felt she needed to come to the emergency department. She is having a cough. It does rattle in her chest, but she has been unable to produce any sputum. She has had no fevers, chills. No chest pain, but again has had the sore throat. REVIEW OF SYSTEMS: Also notable for back pain, which she states is chronic. She has also had fairly poor fluid intake at home and she says she has lost about 40 pounds approximately over one year. All other systems reviewed. All pertinent positives and negatives noted in the history of present illness. PAST MEDICAL HISTORY: Diabetes, hypertension, COPD, hyperlipidemia, urinary incontinence, arthritis, coronary artery disease, and some type of paroxysmal tachycardia syndrome. PAST SURGICAL HISTORY: Coronary stents, but she mentioned that she thought maybe this was a congenital issue. She has had a hysterectomy with BSO, breast biopsy, cholecystectomy. She has had some type of ablation of the heart, but records indicated it was an AV ablation, but she does not have a pacemaker. FAMILY HISTORY: Father has cancer. Mother has heart disease. SOCIAL HISTORY: Former smoker, who quit many years ago, she smoked about 26 years a pack a day. No alcohol. No drugs. She is and lives with her . She is full code and he would be her surrogate decision maker. CURRENT MEDICATIONS: Medications that she was just prescribed yesterday including prednisone, cefdinir, and DuoNeb along with her usual medications; 1. Ferrous sulfate 325 daily. 2. Lyrica 75 mg b.i.d. 3. Nexium 20 mg daily. 4. VESIcare 5 mg daily. 5. Nabumetone 500 mg b.i.d. 6. Montelukast 10 mg daily. 7. Lisinopril/hydrochlorothiazide 20/25 one half tablet p.o. daily. 8. Fluticasone one spray per nostril daily. 9. Dulera 200/5 two puffs b.i.d. 10. Aspirin 81 mg daily. 11. Colchicine 0.6 mg b.i.d. ALLERGIES: PENICILLIN AND PERCOCET. PHYSICAL EXAMINATION: VITAL SIGNS: BP 140/68, pulse 94, respirations 24, O2 saturation 96% on room air. GENERAL APPEARANCE: Age-appropriate female, in no distress. She is awake, alert, oriented, pleasant, cooperative HEENT: [place]. No OP lesions. No evidence of thrush. A bit of a dry oral mucosa. NECK: Supple and symmetric with no lymphadenopathy, JVD, or carotid bruits. HEART: Regular. Borderline tachycardic with occasional atrial ectopy. She has a loud systolic murmur heard at the left lower sternal border but throughout the left precordium. LUNGS: Diminished. She has mild scattered rales bilaterally and minimal expiratory wheeze bilaterally. ABDOMEN: Soft, nontender, and nondistended. Positive bowel sounds. No masses. No organomegaly. EXTREMITIES: Trace edema of the lower extremities. Slightly tender to palpation over the lower extremities. No erythema. No cyanosis or clubbing. NEURO: Moves all extremities spontaneously. Cognitively intact. Cranial nerves intact. No focal deficits. PSYCH: Normal affect and behavior. LABORATORY DATA: White count 7.9, hemoglobin 13.2, platelets 202. Sodium 140, potassium 4.7, chloride 107, BUN 33, creatinine 1.52, GFR 33, glucose 181, lactic acid 1.2, AST 20, ALT 10. BNP was 111. Albumin 4.2. Chest x-ray is clear. EKG shows sinus tach with a rate of 112, some PACs, left posterior fascicular block. IMPRESSION AND PLAN: 1. Acute hypoxic hypercapnic respiratory failure, consistent with the patient's prior decompensated chronic obstructive pulmonary disease. She will be on supplemental oxygen. 2. Chronic obstructive pulmonary disease exacerbation with bronchitis. Start nebulizers with DuoNeb and add steroids with Solu-Medrol, cover with antibiotics with Rocephin. Consult Pulmonology. The patient has received magnesium, albuterol nebulizer x3, ipratropium nebulizer x1, 125 of Solu-Medrol and 500 mL of fluid in the ER without significant improvement. 3. Substantial cardiac murmur. She has not had an echocardiogram that I can see since 2013. We will repeat one of those now as I am concerned this could be contributory to her dyspnea. 4. Chronic kidney disease, stage 3. She is currently fairly close to her prior baseline with her renal function. 5. Hypertension, continue with her home medications with lisinopril/hydrochlorothiazide. Job ID: [id number]
[2019-07-11] MEDS: Acetaminophen 325 MG TAB PO PRN (17:00)
[2019-07-11] MEDS: cefTRIAXone\\ROCEPHIN 1 GM in Sodium Chloride 0.9% 100 ML IVPB SCH (17:12)
[2019-07-11] MEDS ORDERED: Arformoterol 15 MCG/2 ML NEB NEB SCH (18:30)
[2019-07-11] MEDS: Mometasone/Formoterol 120 PUFF INHALER INH SCH (19:47)
[2019-07-11] MEDS: Diabetic Tussin 200 MG/10 ML UDCUP PO PRN (21:07)
[2019-07-11] MEDS: Pregabalin 75 MG CAP PO SCH (21:08)
[2019-07-11] MEDS: Trospium 20 MG TAB PO SCH (21:09)
[2019-07-11] MEDS: Montelukast Sodium 10 mg Tablet PO SCH (21:09)
[2019-07-11] MEDS: methylPREDNISolone Sod Succ 40 MG VIAL IVP SCH (21:14)
[2019-07-11] MEDS: Nabumetone 500 MG TAB PO SCH (23:55)
[2019-07-12] MEDS: methylPREDNISolone Sod Succ 40 MG VIAL IVP SCH ×4 (01:52→18:03)
[2019-07-12 05:16] LABS: Anion Gap 13 mmol/L (10-20); BUN (Urea Nitrogen) 34 mg/dL (9.8-20.1); Calc. Creatinine Clearance 38 mL/min (70-130); Calcium 8.8 mg/dL (7.8-10.44); Carbon Dioxide 20 mmol/L (23-31); Chloride 110 mmol/L (98-107); Estimated GFR-MDRD 42; Glucose 151 mg/dL (83-110); Potassium 4.3 mmol/L (3.5-5.1); Sodium 139 mmol/L (136-145)
[2019-07-12] MEDS: Mometasone/Formoterol 120 PUFF INHALER INH SCH ×2 (07:38→19:27)
[2019-07-12] MEDS: Aspirin 81 mg Enteric Coated Tablet PO SCH (08:42)
[2019-07-12] MEDS: Lisinopril/Hydrochlorothiazide 20/25 mg Tablet PO SCH (08:42)
[2019-07-12] MEDS: Pregabalin 75 MG CAP PO SCH ×2 (08:43→21:03)
[2019-07-12] MEDS: Ferrous Sulfate 325 MG TAB PO SCH (08:43)
[2019-07-12] MEDS: Trospium 20 MG TAB PO SCH ×2 (08:43→21:03)
[2019-07-12] MEDS: Nabumetone 500 MG TAB PO SCH ×2 (08:44→21:03)
[2019-07-12] MEDS: Enoxaparin Sodium 40 MG/0.4 ML SYRINGE SC SCH (08:45)
[2019-07-12] MEDS ORDERED: Prevnar 13-Val Conj/PF 0.5 ML SYRINGE IM ONE (09:00)
[2019-07-12] MEDS ORDERED: Colchicine 0.3 MG TAB PO SCH (09:15)
[2019-07-12] MEDS: Fluticasone Propionate Nasal Spray 16 gm Bottle NASAL SCH (10:12)
[2019-07-12] MEDS ORDERED: Colchicine 0.6 MG TAB PO SCH (10:30)
--- NOTE | 2019-07-12 13:35 | CON ---
DATE OF CONSULTATION: 07/12/2019 CONSULTING PHYSICIAN: Hospitalist Group. REASON FOR CONSULTATION: Asthma exacerbation. HISTORY OF PRESENT ILLNESS: This patient is an 84-year-old female, who has followed with Dr. Coy in the past. She comes into the hospital now for the 3rd time in the last 3 months with asthma, shortness of breath, and a cough. She is currently on nebulization treatments, antibiotics, and IV corticosteroids. PAST MEDICAL HISTORY: Remarkable for, 1. Asthma/COPD. 2. Hyperlipidemia. 3. Hypertension. 4. Diabetes mellitus. 5. Coronary artery disease. 6. Incontinence. 7. Arthritis. 8. Supraventricular tachycardia. PAST SURGICAL HISTORY: 1. Coronary stent placement. 2. Hysterectomy with bilateral salpingo-oophorectomy. 3. Breast biopsy. 4. Cholecystectomy. 5. Cardiac ablation. FAMILY MEDICAL HISTORY: Remarkable for heart disease. SOCIAL HISTORY: Quit smoking about 26 years ago. Does not consume alcohol. Does not use illicit drugs. MEDICATIONS: Prior to admission, she takes; 1. Nexium 20 mg twice daily. 2. Iron sulfate. 3. Lyrica. 4. VESIcare. 5. Nabumetone. 6. Montelukast. 7. Lisinopril/hydrochlorothiazide. 8. Fluticasone. 9. Dulera. 10. Aspirin. 11. Colchicine. ALLERGIES: PENICILLIN AND PERCOCET. REVIEW OF SYSTEMS: Otherwise, negative. PHYSICAL EXAMINATION: VITAL SIGNS: Temperature 98.0, pulse 97, respirations 18, O2 saturation 92% on room air, and blood pressure 134/60. HEENT: Unremarkable. NECK: No adenopathy or JVD. LUNGS: Diffuse wheezing. CARDIOVASCULAR: S1 and S2. Regular. ABDOMEN: Soft. EXTREMITIES: No edema. LABORATORY DATA: White blood cell count 7.9, hematocrit of 39.5, and platelet count 202. Sodium 139, potassium 4.3, chloride 100, CO2 of 20, BUN 34, creatinine 1.2, and glucose 151. IMAGING DATA: Chest x-ray shows a large hiatal hernia. I looked back at CT scan of 2014, she had the hiatal hernia and additionally she has part of her transverse colon in the mediastinum. ASSESSMENT: Asthma/chronic obstructive pulmonary disease. I think symptomatology is probably aggravated by chronic reflux from the hiatal hernia and the herniated colon in the mediastinum. RECOMMENDATIONS: 1. Make the Protonix b.i.d. 2. Consider future fundoplication or diaphragmatic hernia repair. 3. Continue nebs. Job ID: [id number]
[2019-07-12] MEDS: Diabetic Tussin 200 MG/10 ML UDCUP PO PRN ×2 (16:52→21:04)
[2019-07-12] MEDS: cefTRIAXone\\ROCEPHIN 1 GM in Sodium Chloride 0.9% 100 ML IVPB SCH (18:03)
--- NOTE | 2019-07-12 20:04 | PDOC.HOSPP ---
- Subjective Subjective: still feeling sob and has some cough. - Objective Vital Signs & Weight: Vital Signs (12 hours) Temp Pulse Resp BP Pulse Ox 07/12/19 19:27 96 16 93 L 07/12/19 16:00 98.2 F 103 H 18 145/67 H 95 07/12/19 13:57 70 20 97 07/12/19 11:58 98.0 F 97 18 134/60 92 L 07/12/19 08:06 97.6 F 92 14 115/57 L 96 Weight Admit Weight 160 lb Weight 160 lb 8 oz I&O: 07/11/19 07/12/19 07/13/19 06:59 06:59 06:59 Intake Total 50 Output Total 100 Balance -50 Result Diagrams: 07/11/19 08:37 07/12/19 04:22 Additional Labs: Accuchecks 07/12/19 07/11/19 11:16 21:09 POC Glucose 163 H 182 H Hospitalist ROS - Medication Medications: Active Medications Generic Name Dose Route Start Last Admin Trade Name Freq PRN Reason Stop Dose Admin Acetaminophen 650 mg 07/11/19 15:04 07/11/19 17:00 Tylenol PO 650 mg Q4H PRN Administration Headache/Fever/Mild Pain (1-3) Albuterol/Ipratropium 3 ml 07/11/19 19:00 07/12/19 19:27 Duoneb NEB 3 ml [id number] JIGNESH Administration Aspirin 81 mg 07/12/19 09:00 07/12/19 08:42 Ecotrin PO 81 mg DAILY JIGNESH Administration Enoxaparin Sodium 40 mg 07/12/19 09:00 07/12/19 08:45 Lovenox SC 40 mg 09 JIGNESH Administration Ferrous Sulfate 325 mg 07/12/19 08:00 07/12/19 08:43 Feosol PO 325 mg QAM-WM JIGNESH Administration Fluticasone Propionate 1 gm 07/12/19 09:00 07/12/19 10:12 Flonase Nasal [place] NASAL 1 unit DAILY JIGNESH Administration Guaifenesin 200 mg 07/11/19 20:39 07/12/19 16:52 Robitussin Sf PO 200 mg Q4H PRN Administration Cough Lisinopril/HCTZ 0.5 tab 07/12/19 09:00 01/02/20 08:42 Prinizide 20-25 PO Not Given DAILY [facility] Ceftriaxone Sodium 1 gm/ 100 mls @ 200 mls/hr 07/11/19 17:00 07/12/19 18:03 Sodium Chloride IVPB 100 mls Q24HR JIGNESH Administration Methylprednisolone Sodium Succinate 40 mg 07/11/19 18:00 07/12/19 18:03 Solu-Medrol IVP 40 mg Q6HR JIGNESH Administration Mometasone Furoate/Formoterol Fumar 2 puff 07/11/19 18:30 07/12/19 19:27 Dulera 200 Mcg/5 Mcg Inhaler INH 2 puff BID-RT JIGNESH Administration Montelukast Sodium 10 mg 07/11/19 21:00 07/11/19 21:09 Singulair PO 10 mg QPM JIGNESH Administration Nabumetone 500 mg 07/11/19 21:00 07/12/19 08:44 Relafen PO 500 mg BID JIGNESH Administration Pregabalin 75 mg 07/11/19 21:00 07/12/19 08:43 Lyrica PO 75 mg BID JIGNESH Administration Trospium 20 mg 07/11/19 21:00 07/12/19 08:43 Trospium PO 20 mg BID JIGNESH Administration - Exam General Appearance: NAD, awake alert Heart: RRR, no murmur, no gallops, no rubs Respiratory: no rales, wheezes Gastrointestinal: soft, non-tender, non-distended, normal bowel sounds, no palpable masses, no hepatomegaly, no splenomegaly, no bruit Extremities: no cyanosis, no clubbing, no edema Skin: normal turgor Musculoskeletal: normal tone, normal strength Musculoskeletal - other findings: Moderate kyphosis. Psychiatric: normal affect Hosp A/P (1) Acute respiratory failure with hypoxia Code(s): J96.01 - ACUTE RESPIRATORY FAILURE WITH HYPOXIA Status: Acute (2) COPD exacerbation Code(s): J44.1 - CHRONIC OBSTRUCTIVE PULMONARY DISEASE W (ACUTE) EXACERBATION Status: Acute (3) CKD (chronic kidney disease), stage III Code(s): N18.3 - CHRONIC KIDNEY DISEASE, STAGE 3 (MODERATE) Status: Acute (4) Kyphosis Status: Acute (5) Hiatal hernia Code(s): K44.9 - DIAPHRAGMATIC HERNIA WITHOUT OBSTRUCTION OR GANGRENE Status: Acute (6) CAD (coronary artery disease) Code(s): I25.10 - ATHSCL HEART DISEASE OF [place] CORONARY ARTERY W/O ANG PCTRS Status: Acute Qualifiers: (7) GERD (gastroesophageal reflux disease) Code(s): K21.9 - GASTRO-ESOPHAGEAL REFLUX DISEASE WITHOUT ESOPHAGITIS Status: Acute - Plan Discussed with Pulm. We are both concerned about her large hiatal hernia and GERD contributing to her respiratory issues. She also has the kyphosis, that worsens lung capacity and GERD. PPI increased to bid. Discussed with the patient and her . Short term goal is to improve her immediate resp. issues. Then we want to be aggressive treating the GERD. Hopefully that will minimize recurrences. Surgery would be the only definitive treatment, but that would be a major undertaking at her age and would be risky. We will try to get her back to Dr. White after discharge to discuss those options. Continue nebs, steroids, oxygen.
[2019-07-12] MEDS: Montelukast Sodium 10 mg Tablet PO SCH (21:04)
[2019-07-13] MEDS: methylPREDNISolone Sod Succ 40 MG VIAL IVP SCH ×5 (01:48→23:20)
[2019-07-13 05:41] VITALS: BMI 29.8
[2019-07-13] MEDS: Mometasone/Formoterol 120 PUFF INHALER INH SCH ×2 (08:10→21:29)
[2019-07-13] MEDS ORDERED: Colchicine 0.3 MG TAB PO SCH (09:00)
[2019-07-13] MEDS: Pregabalin 75 MG CAP PO SCH ×2 (09:15→20:27)
[2019-07-13] MEDS: Ferrous Sulfate 325 MG TAB PO SCH (09:15)
[2019-07-13] MEDS: Colchicine 0.6 MG TAB PO SCH (09:15)
[2019-07-13] MEDS: Trospium 20 MG TAB PO SCH ×2 (09:16→20:27)
[2019-07-13] MEDS: Aspirin 81 mg Enteric Coated Tablet PO SCH (09:16)
[2019-07-13] MEDS: Enoxaparin Sodium 40 MG/0.4 ML SYRINGE SC SCH (09:16)
[2019-07-13] MEDS: Fluticasone Propionate Nasal Spray 16 gm Bottle NASAL SCH (09:17)
[2019-07-13] MEDS: Lisinopril/Hydrochlorothiazide 20/25 mg Tablet PO SCH (09:17)
[2019-07-13] MEDS: Nabumetone 500 MG TAB PO SCH ×2 (09:18→20:27)
--- NOTE | 2019-07-13 10:43 | PRG ---
DATE OF SERVICE: 07/13/2019 SUBJECTIVE: The patient feels better and wants to go home. OBJECTIVE: VITAL SIGNS: Her temperature is 96.7, pulse 96, respirations 18, O2 saturation 97% on 2 L, blood pressure 160/75. HEENT: Unremarkable. NECK: No adenopathy or JVD. CARDIAC: S1, S2. Regular. 2/6 systolic murmur. ABDOMEN: Soft. EXTREMITIES: No edema. LABORATORY DATA: Sodium 139, potassium 4.3, chloride 110, CO2 of 20, BUN 34, creatinine 1.2, and glucose 151. ASSESSMENT: The patient presents with increased shortness of breath. In speaking with the patient, I initially thought this might be from a hiatal hernia with bronchospasm now suspicious that she could be symptomatic from the aortic stenosis. RECOMMENDATION: Recommend Cardiology give some input about the aortic stenosis. I would continue twice daily proton pump inhibitor therapy. Continue her nebulization therapy. Taper her steroids over a week or two. Job ID: [id number]
[2019-07-13] MEDS: Acetaminophen 325 MG TAB PO PRN ×2 (11:03→20:27)
--- NOTE | 2019-07-13 14:02 | PDOC.HOSPP ---
- Subjective Subjective: Doing a little better. Discussed her baseline in more detail. She says the most activity that she can do is going to the bathroom. She cannot walk down the koenig without becoming SOB. - Objective Vital Signs & Weight: Vital Signs (12 hours) Temp Pulse Resp BP Pulse Ox 07/13/19 13:29 83 14 99 07/13/19 11:49 98.0 F 81 14 116/56 L 94 L 07/13/19 08:09 71 18 97 07/13/19 07:55 97.5 F L 85 19 148/67 H 91 L 07/13/19 03:39 96.7 F L 96 18 160/75 H 92 L Weight Admit Weight 160 lb Weight 158 lb I&O: 07/12/19 07/13/19 07/14/19 06:59 06:59 06:59 Intake Total 50 250 Output Total 100 Balance -50 250 Result Diagrams: 07/11/19 08:37 07/12/19 04:22 Hospitalist ROS - Medication Medications: Active Medications Generic Name Dose Route Start Last Admin Trade Name Freq PRN Reason Stop Dose Admin Acetaminophen 650 mg 07/11/19 15:04 07/13/19 11:03 Tylenol PO 650 mg Q4H PRN Administration Headache/Fever/Mild Pain (1-3) Albuterol/Ipratropium 3 ml 07/11/19 19:00 07/13/19 13:29 Duoneb NEB 3 ml [id number] JIGNESH Administration Aspirin 81 mg 07/12/19 09:00 07/13/19 09:16 Ecotrin PO 81 mg DAILY JIGNESH Administration Colchicine 0.6 mg 07/13/19 09:00 07/13/19 09:15 Colchicine PO 0.6 mg DAILY JIGNESH Administration Enoxaparin Sodium 40 mg 07/12/19 09:00 07/13/19 09:16 Lovenox SC 40 mg 0900 JIGNESH Administration Ferrous Sulfate 325 mg 07/12/19 08:00 07/13/19 09:15 Feosol PO 325 mg QAM-WM JIGNESH Administration Fluticasone Propionate 1 gm 07/12/19 09:00 07/13/19 09:17 Flonase Nasal [place] NASAL 1 spr DAILY JIGNESH Administration Guaifenesin 200 mg 07/11/19 20:39 07/12/19 21:04 Robitussin Sf PO 200 mg Q4H PRN Administration Cough Lisinopril/HCTZ 0.5 tab 07/12/19 09:00 07/13/19 09:17 Prinizide 20-25 PO Not Given DAILY JIGNESH Ceftriaxone Sodium 1 gm/ 100 mls @ 200 mls/hr 07/11/19 17:00 07/12/19 18:03 Sodium Chloride IVPB 100 mls Q24HR JIGNESH Administration Methylprednisolone Sodium Succinate 40 mg 07/11/19 18:00 07/13/19 13:22 Solu-Medrol IVP 40 mg Q6HR JIGNESH Administration Mometasone Furoate/Formoterol Fumar 2 puff 07/11/19 18:30 07/13/19 08:10 Dulera 200 Mcg/5 Mcg Inhaler INH 2 puff BID-RT JIGNESH Administration Montelukast Sodium 10 mg 07/11/19 21:00 07/12/19 21:04 Singulair PO 10 mg QPM JIGNESH Administration Nabumetone 500 mg 07/11/19 21:00 07/13/19 09:18 Relafen PO 500 mg BID JIGNESH Administration Pantoprazole Sodium 40 mg 07/12/19 21:00 07/13/19 09:16 Protonix PO 40 mg BID JIGNESH Administration Pregabalin 75 mg 07/11/19 21:00 07/13/19 09:15 Lyrica PO 75 mg BID JIGNESH Administration Trospium 20 mg 07/11/19 21:00 07/13/19 09:16 Trospium PO 20 mg BID JIGNESH Administration - Exam General Appearance: NAD, awake alert Heart: RRR, no murmur, no gallops, no rubs, normal peripheral pulses Respiratory: rales (Scattered, mild) Gastrointestinal: soft, non-tender, non-distended, normal bowel sounds, no palpable masses, no hepatomegaly, no splenomegaly, no bruit Extremities: no cyanosis, no clubbing, no edema Skin: normal turgor Neurological: no focal deficits Hosp A/P (1) Acute respiratory failure with hypoxia Code(s): J96.01 - ACUTE RESPIRATORY FAILURE WITH HYPOXIA Status: Acute (2) COPD exacerbation Code(s): J44.1 - CHRONIC OBSTRUCTIVE PULMONARY DISEASE W (ACUTE) EXACERBATION Status: Acute (3) CKD (chronic kidney disease), stage III Code(s): N18.3 - CHRONIC KIDNEY DISEASE, STAGE 3 (MODERATE) Status: Acute (4) Kyphosis Status: Acute (5) Hiatal hernia Code(s): K44.9 - DIAPHRAGMATIC HERNIA WITHOUT OBSTRUCTION OR GANGRENE Status: Acute (6) CAD (coronary artery disease) Code(s): I25.10 - ATHSCL HEART DISEASE OF [place] CORONARY ARTERY W/O ANG PCTRS Status: Acute Qualifiers: (7) GERD (gastroesophageal reflux disease) Code(s): K21.9 - GASTRO-ESOPHAGEAL REFLUX DISEASE WITHOUT ESOPHAGITIS Status: Acute (8) Moderate aortic stenosis Code(s): I35.0 - NONRHEUMATIC AORTIC (VALVE) STENOSIS Status: Acute (9) Moderate pulmonary valve regurgitation Code(s): I37.1 - NONRHEUMATIC PULMONARY VALVE INSUFFICIENCY Status: Acute - Plan Discussed with Pulm. We are both concerned about her large hiatal hernia and GERD contributing to her respiratory issues. She also has the kyphosis, that worsens lung capacity and GERD. PPI increased to bid. Discussed with the patient and her . Short term goal is to improve her immediate resp. issues. Then we want to be aggressive treating the GERD. Hopefully that will minimize recurrences. Surgery would be the only definitive treatment, but that would be a major undertaking at her age and would be risky. We will try to get her back to Dr. White after discharge to discuss those options. Continue nebs, steroids, oxygen. The echo does demonstrate some . Unclear if this is contributory to her chronic SOB, AP[place]ICIO. Cardiology consult.
--- NOTE | 2019-07-13 15:37 | CON ---
DATE OF CONSULTATION: HISTORY OF PRESENT ILLNESS: The patient is an 84-year-old woman, who presented with dyspnea. The patient has a long history of COPD. The patient also has a history of SVT. She has previously undergone ablation for SVT. The patient has been admitted on several occasions with COPD exacerbations. She presents once again with a several-day history of difficulty breathing. The patient denies having any chest discomfort. PAST MEDICAL HISTORY: 1. SVT. 2. Hypertension. 3. Dyslipidemia. 4. Diabetes mellitus. 5. Arthritis. PAST SURGICAL HISTORY: Hysterectomy and cholecystectomy. SOCIAL HISTORY: Nonsmoker. FAMILY HISTORY: No strong family history of coronary artery disease. MEDICATIONS ON ADMISSION: See nursing list. ALLERGIES: 1. PERCODAN. 2. PENICILLIN. REVIEW OF SYSTEMS: [employer]point systems is otherwise unremarkable. PHYSICAL EXAMINATION: GENERAL: Obese woman, in no acute distress. VITAL SIGNS: Blood pressure 116/56. NECK: Showed no jugular venous distention. LUNGS: Have scattered wheezes. HEART: Regular rate and rhythm. Normal S1 and S2. 3/6 systolic murmur. ABDOMEN: Nondistended. EXTREMITIES: Showed no edema. VASCULAR: Radial pulses 2+. LABORATORY DATA: Sodium 139, potassium 4.3, chloride 110, bicarbonate 34, creatinine is 1.23. White blood cell count 7.9, hemoglobin 13.2, hematocrit 39.5, and platelets are 202. EKG revealed sinus tachycardia with poor R-wave progression. Echocardiogram revealed normal left ventricular ejection fraction of 60% to 65% with [id number] aortic stenosis. Chest x-ray showed normal heart size with no effusions. IMPRESSION: 1. Chronic obstructive pulmonary disease exacerbation. 2. [id number] aortic stenosis. 3. History of supraventricular tachycardia. 4. Hypertension. 5. Diabetes mellitus. 6. Dyslipidemia. 7. Obesity. This patient presents with a chronic obstructive pulmonary disease exacerbation. She does not have severe aortic stenosis. We will continue to follow this patient with you through her hospitalization. Job ID: [id number] [facility]
[2019-07-13] MEDS: cefTRIAXone\\ROCEPHIN 1 GM in Sodium Chloride 0.9% 100 ML IVPB SCH (17:27)
[2019-07-13] MEDS: Atorvastatin Calcium 10 MG TAB PO SCH (20:27)
[2019-07-13] MEDS: Montelukast Sodium 10 mg Tablet PO SCH (20:27)
[2019-07-14] MEDS: methylPREDNISolone Sod Succ 40 MG VIAL IVP SCH ×3 (05:47→17:35)
[2019-07-14] MEDS: Mometasone/Formoterol 120 PUFF INHALER INH SCH ×2 (08:07→19:33)
[2019-07-14] MEDS: Aspirin 81 mg Enteric Coated Tablet PO SCH (08:55)
[2019-07-14] MEDS: Ferrous Sulfate 325 MG TAB PO SCH (08:55)
[2019-07-14] MEDS: Lisinopril/Hydrochlorothiazide 20/25 mg Tablet PO SCH (08:56)
[2019-07-14] MEDS: Trospium 20 MG TAB PO SCH ×2 (08:57→20:44)
[2019-07-14] MEDS: Colchicine 0.6 MG TAB PO SCH (08:57)
[2019-07-14] MEDS: Fluticasone Propionate Nasal Spray 16 gm Bottle NASAL SCH (08:57)
[2019-07-14] MEDS: Enoxaparin Sodium 40 MG/0.4 ML SYRINGE SC SCH (08:58)
[2019-07-14] MEDS: Nabumetone 500 MG TAB PO SCH (08:59)
[2019-07-14] MEDS: Pregabalin 75 MG CAP PO SCH (08:59)
[2019-07-14 09:38] LABS: Anion Gap 15 mmol/L (10-20); BUN (Urea Nitrogen) 54 mg/dL (9.8-20.1); Calc. Creatinine Clearance 33 mL/min (70-130); Calcium 9.4 mg/dL (7.8-10.44); Carbon Dioxide 21 mmol/L (23-31); Chloride 106 mmol/L (98-107); Estimated GFR-MDRD 35; Glucose 157 mg/dL (83-110); Potassium 4.8 mmol/L (3.5-5.1); Sodium 137 mmol/L (136-145)
[2019-07-14 09:43] LABS: Band 3 % (5-11); Hemoglobin 12.8 g/dL (12.0-16.0); Lymphocytes 21 % (21-51); MDiff Complete? YES; Mean Corpuscular HGB CONC 33.5 g/dL (32.0-36.0); Mean Corpuscular Volume 92.5 fL (78.0-98.0); Mean Platelet Volume 8.2 fL (7.4-10.4); Monocytes 2 % (0-10); Neutrophil 74 % (42-75); Platelet Count 229 thou/uL (130-400); RBC Distribution Width 12.1 % (11.5-14.5); Red Blood Cell (RBC) Count 4.14 mill/uL (4.20-5.40); White Blood Cell (WBC) Count 10.2 thou/uL (4.8-10.8)
--- NOTE | 2019-07-14 11:05 | PDOC.HOSPP ---
- Subjective Encounter Date: 07/14/19 (f/u COPD) Encounter Time: 11:03 Subjective: Pt states she is ready to go home. She reports improvement today compared to admission, no sig change from yesterday. She denies n/v/abd pain. Reports BM. - Objective Vital Signs & Weight: Vital Signs (12 hours) Temp Pulse Resp BP BP Pulse Ox 07/14/19 08:56 82 07/14/19 08:05 82 16 96 07/14/19 07:29 97.8 F 76 22 H 134/61 93 L 07/14/19 04:00 97.2 F L 76 18 132/62 93 L 07/13/19 23:34 22 H Weight Admit Weight 160 lb Weight 158 lb I&O: 07/13/19 07/14/19 07/15/19 06:59 06:59 06:59 Intake Total 250 Balance 250 Result Diagrams: 07/14/19 09:12 07/14/19 09:12 Additional Labs: Accuchecks 07/14/19 07/13/19 05:33 20:38 POC Glucose 143 H 181 H EKG Reviewed by me: Yes (tele sinus 80's) Hospitalist ROS - Medication Medications: Active Medications Generic Name Dose Route Start Last Admin Trade Name Freq PRN Reason Stop Dose Admin Acetaminophen 650 mg 07/11/19 15:04 07/13/19 20:27 Tylenol PO 650 mg Q4H PRN Administration Headache/Fever/Mild Pain (1-3) Albuterol/Ipratropium 3 ml 07/11/19 19:00 07/14/19 08:05 Duoneb NEB 3 ml [id number] JIGNESH Administration Aspirin 81 mg 07/12/19 09:00 07/14/19 08:55 Ecotrin PO 81 mg DAILY JIGNESH Administration Atorvastatin Calcium 10 mg 07/13/19 21:00 07/13/19 20:27 Lipitor PO 10 mg HS JIGNESH Administration Colchicine 0.6 mg 07/13/19 09:00 07/14/19 08:57 Colchicine PO 0.6 mg DAILY JIGNESH Administration Enoxaparin Sodium 40 mg 07/12/19 09:00 07/14/19 08:58 Lovenox SC 40 mg 0900 JIGENSH Administration Ferrous Sulfate 325 mg 07/12/19 08:00 07/14/19 08:55 Feosol PO 325 mg QAM- JIGNESH Administration Fluticasone Propionate 1 gm 07/12/19 09:00 07/14/19 08:57 Flonase Nasal [place] NASAL 1 spr DAILY JIGNESH Administration Guaifenesin 200 mg 07/11/19 20:39 07/12/19 21:04 Robitussin Sf PO 200 mg Q4H PRN Administration Cough Ceftriaxone Sodium 1 gm/ 100 mls @ 200 mls/hr 07/11/19 17:00 07/13/19 17:27 Sodium Chloride IVPB 100 mls Q24HR JIGNESH Administration Methylprednisolone Sodium Succinate 40 mg 07/11/19 18:00 07/14/19 05:47 Solu-Medrol IVP 40 mg Q6HR JIGNESH Administration Mometasone Furoate/Formoterol Fumar 2 puff 07/11/19 18:30 07/14/19 08:07 Dulera 200 Mcg/5 Mcg Inhaler INH 2 puff BID-RT JIGNESH Administration Montelukast Sodium 10 mg 07/11/19 21:00 07/13/19 20:27 Singulair PO 10 mg QPM JIGNESH Administration Pantoprazole Sodium 40 mg 07/12/19 21:00 07/14/19 08:57 Protonix PO 40 mg BID JIGNESH Administration Trospium 20 mg 07/11/19 21:00 07/14/19 08:57 Trospium PO 20 mg BID JIGNESH Administration - Exam General Appearance: NAD Heart: RRR Heart - other findings: 3/6 holosystolic murmur Respiratory - other findings: scattered rhonchi with fair air movement Gastrointestinal: soft, non-tender, non-distended, normal bowel sounds Extremities: no cyanosis, no clubbing, no edema Musculoskeletal: normal tone Psychiatric: normal affect Hosp A/P (1) COPD exacerbation Code(s): J44.1 - CHRONIC OBSTRUCTIVE PULMONARY DISEASE W (ACUTE) EXACERBATION Status: Acute (2) CKD (chronic kidney disease), stage III Code(s): N18.3 - CHRONIC KIDNEY DISEASE, STAGE 3 (MODERATE) Status: Chronic (3) GERD (gastroesophageal reflux disease) Code(s): K21.9 - GASTRO-ESOPHAGEAL REFLUX DISEASE WITHOUT ESOPHAGITIS Status: Chronic (4) Hiatal hernia Code(s): K44.9 - DIAPHRAGMATIC HERNIA WITHOUT OBSTRUCTION OR GANGRENE Status: Chronic (5) Moderate aortic stenosis Code(s): I35.0 - NONRHEUMATIC AORTIC (VALVE) STENOSIS Status: Chronic (6) Acute respiratory failure with hypoxia Code(s): J96.01 - ACUTE RESPIRATORY FAILURE WITH HYPOXIA Status: Acute (7) CAD (coronary artery disease) Code(s): I25.10 - ATHSCL HEART DISEASE OF [place] CORONARY ARTERY W/O ANG PCTRS Status: Chronic Qualifiers: - Plan COPD with exac - appreciate Pulm consult - change to oral steroids starting tomorrow - continue abx for now - do not anticipate pt will reqiure at discharge - wean oxygen - appreciate Cards consult - not suspected to be playing a role in current sx Hiatal hernia - continue PPI BID CKD stable Home meds reconcilled - lyrica changed to how pt takes it at home - 2 tabs HS hold nabumetone for now start claritin to see if PND is contributing to current sx Will determine discharge based on ability to wean oxygen or arrange oxygen if required. Pt agreeable to this. dvt prophy - gi prophy - not indictaed - on BID ppi code status full reviewed plan of care with plan of care, no questions or further needs at end of eval
[2019-07-14] MEDS: Loratadine 5 MG/5 ML UDCUP PO SCH (11:43)
[2019-07-14] MEDS: cefTRIAXone\\ROCEPHIN 1 GM in Sodium Chloride 0.9% 100 ML IVPB SCH (17:35)
[2019-07-14] MEDS: Montelukast Sodium 10 mg Tablet PO SCH (20:45)
[2019-07-14] MEDS: Atorvastatin Calcium 10 MG TAB PO SCH (20:45)
--- NOTE | 2019-07-14 20:55 | PRG ---
DATE OF SERVICE: 07/14/2019 INTERVAL HISTORY: The patient is doing really well from respiratory standpoint. She indicates that she does not have any shortness of breath currently. When she exerts herself significantly, she does however. She denies any fevers or chills. She is not coughing. She does not have any sputum production, nausea, vomiting , or palpitations. Her appetite is a little bit off, but she is able to tolerate p.o. without nausea or vomiting. Otherwise, she has essentially returned to her usual state of health. PHYSICAL EXAMINATION: VITAL SIGNS: Afebrile. Pulse 76, blood pressure 140/63, respirations 18, saturation 98% on room air. GENERAL: The patient is awake and alert, in no apparent distress. LUNGS: Good air entry bilaterally without any prolonged expiratory phase. Rhonchi are present. They clear with cough. HEART: Normal rate. Regular. There is a systolic murmur present. ABDOMEN: Soft, nontender, and nondistended. Bowel sounds are positive. MUSCULOSKELETAL: No cyanosis or clubbing. There is no pitting in the right lower extremity and only trace to 1+ pitting in the left lower extremity. NEUROLOGIC: Grossly nonfocal. LABORATORY DATA: WBC 10.2, hemoglobin 12.8, platelets 229,000. Creatinine 1.42 and gently up trending. BUN 54. Basic metabolic profile is otherwise unremarkable. Blood cultures x2 are negative. Respiratory virus panel is unremarkable. IMAGING DATA: Echocardiogram demonstrates 1/3 diastolic dysfunction with a preserved ejection fraction, and moderate aortic stenosis. ASSESSMENT: 1. Dyspnea on exertion. 2. Aortic stenosis, moderate. 3. Gastroesophageal reflux disease with large hiatal hernia. DISCUSSION AND PLAN: We will continue supportive measures. Pulmonary will continue to follow, intermittently during this hospital stay. If she develops increasing respiratory difficulties through the weekend, please give me a phone call. Job ID: [id number] [facility]
[2019-07-14] MEDS ORDERED: Pregabalin 75 MG CAP PO SCH (21:00)
[2019-07-15] MEDS ORDERED: Sodium Chloride 0.9% 10 ML ONE (00:17)
[2019-07-15] MEDS: methylPREDNISolone Sod Succ 40 MG VIAL IVP SCH (00:21)
[2019-07-15 05:16] LABS: Anion Gap 16 mmol/L (10-20); BUN (Urea Nitrogen) 55 mg/dL (9.8-20.1); Calc. Creatinine Clearance 34 mL/min (70-130); Calcium 8.9 mg/dL (7.8-10.44); Carbon Dioxide 21 mmol/L (23-31); Chloride 107 mmol/L (98-107); Estimated GFR-MDRD 36; Glucose 167 mg/dL (83-110); Potassium 4.5 mmol/L (3.5-5.1); Sodium 139 mmol/L (136-145)
[2019-07-15] MEDS: Mometasone/Formoterol 120 PUFF INHALER INH SCH (07:20)
[2019-07-15] MEDS ORDERED: predniSONE 20 MG TAB PO SCH (08:00)
[2019-07-15] MEDS ORDERED: Enoxaparin Sodium 30 MG/0.3 ML SYRINGE SC SCH (09:00)
[2019-07-15] MEDS ORDERED: Pregabalin 75 MG CAP PO SCH (09:00)
[2019-07-15 09:17] VITALS: TEMP 97.9
[2019-07-15] MEDS: Ferrous Sulfate 325 MG TAB PO SCH (09:20)
[2019-07-15] MEDS: Aspirin 81 mg Enteric Coated Tablet PO SCH (09:21)
[2019-07-15] MEDS: Colchicine 0.6 MG TAB PO SCH (09:21)
[2019-07-15] MEDS: Trospium 20 MG TAB PO SCH (09:22)
[2019-07-15] MEDS: Loratadine 5 MG/5 ML UDCUP PO SCH (09:22)
--- NOTE | 2019-07-15 11:34 | DIS ---
DATE OF ADMISSION: 07/11/2019 DATE OF DISCHARGE: 07/15/2019 CONSULTANTS: 1. Pulmonology, Dr. Tidwell. 2. Cardiology, Dr. De Dios. MEDICATIONS: Reconciled at discharge. New medications: 1. Tylenol 650 mg every 6 hours as needed for pain. 2. Loratadine 5 mg/5 mL, take 5 mL once daily, further refills from Dr. White. 3. Pantoprazole 40 mg b.i.d., prescription provided for 1 month, further refills from Dr. White. 4. Prednisone 10 mg tablets 3 tablets daily for 2 days, then 2 tablets daily for 2 days, then one tablet daily for 2 days, prescription provided for 12 tablets. Medications discontinued are; 1. Prednisone that she has at home from prior to this admission. 2. Nabumetone and ibuprofen are discontinued secondary to chronic kidney disease. 3. Nexium that the patient was on once daily. 4. Cefdinir antibiotic prior to this admission, the patient has completed antibiotics. Medications to resume; 1. Albuterol inhaler every 6 hours as needed. 2. Aspirin 81 mg daily. 3. Ferrous sulfate 325 mg daily. 4. Flonase 1 spray each nostril twice daily. 5. DuoNeb 4 times a day as needed. 6. Dulera two puffs twice daily. 7. Singulair 10 mg in the evening. 8. Multivitamin. 9. Lyrica two tablets at bedtime. 10. Simvastatin 20 mg at bedtime. 11. VESIcare 5 mg b.i.d. FINAL DIAGNOSES: 1. Acute hypoxic and hypercapnic respiratory failure, resolved. 2. Chronic obstructive pulmonary disease with exacerbation. 3. Bronchitis. 4. Aortic stenosis, moderate. 5. Hiatal hernia. 6. Kyphosis. SECONDARY DIAGNOSES: 1. Coronary artery disease. 2. Chronic kidney disease, stage 3, stable. 3. gastroesophageal reflux disease. 4. Moderate pulmonary valve regurgitation. HISTORY OF PRESENT ILLNESS: Ms. Pennington is an 84-year-old female with the above medical problems, who presented to the emergency room with complaint of breathing difficulties. She has been hospitalized twice prior to this. In the outpatient setting, she was started on steroids and cefdinir as well as Flagyl and Diflucan , but had worsening. She was admitted for further evaluation and treatment. HOSPITAL COURSE: The patient was managed with IV steroids, Rocephin for which she received 4 doses, nebulizer therapy, and she has tolerated this well. She was oxygen requiring, however, at rest does not require this. She was checked with ambulation prior to discharge and does not need or qualify for oxygen. The patient reports improvement in her symptoms. The patient does have a hiatal hernia, and was started on a b.i.d. PPI to manage this. Along with Pulmonology, there is concern that the hiatal hernia and kyphosis are compromising her breathing. Follow up in the outpatient setting is warranted to determine any other further needs or treatment. With the steroids, the patient's blood sugars have been elevated here, ranging from 153 to 238. The steroids will be weaned over the next few days. By review of her medical history, the patient does have diabetes, however, is not on medication for this. Given the taper of her steroids, I am going to hold on prescribing anything at discharge. The patient has known chronic kidney disease, her creatinine has been stable here, ranging from 1.23 to 1.52. This is consistent with values last summer as well. Because of this, I recommend that she not take any anti-inflammatory medications , and follow up with Dr. White for monitoring of this, instead for pain to use Tylenol. The patient does have moderate aortic stenosis based on echocardiogram. Cardiology consultation was obtained, the patient has a normal ejection fraction and grade [address] De Dios does not think that this is contributing to her respiratory issues, and outpatient followup can be arranged with Dr. Romero, her primary lot technician. The patient is overall improved, feels like she is back to her baseline breathing, and she does meet criteria for discharge to home. PHYSICAL EXAMINATION: VITAL SIGNS: On day of discharge, blood pressure 120/60, temperature 97.9, pulse 89, respirations 18, and saturations 94% on room air. On telemetry, patient did have a 36 beats of PAT associated with getting up and ambulating, otherwise she has been in sinus rhythm ranging from 70 to 90s with PVCs. GENERAL: Awake, alert, responsive, not in apparent distress. LUNGS: Good air movement. Some scattered rhonchi. No audible wheezing or rales. HEART: Normal S1 and S2. She has a 3/6 holosystolic murmur. ABDOMEN: Soft with present bowel sounds. EXTREMITIES: No clubbing, cyanosis, or pitting edema. She does have tenderness to palpation along her tibia bilateral that she reports is chronic. PLAZA FINDINGS AND TEST RESULTS: CBC; 10.2, 12.8, 38.3, and 229. Chemistries; 139, 4.5, 107, 21, 55, 1.41, and 167. Calcium is 8.9. Lactic acid on arrival 1.2. LFTs; T-bili 0.7, AST 20, ALT 10, alkaline phosphatase 56, total protein 7.2, and albumin 4.2. BNP was 110. Blood cultures from July 11, no growth. Respiratory panel, July 11, none detected. Echocardiogram shows an EF of 60% to 65%, grade 1 of 3 diastolic dysfunction, moderate pulmonic regurgitation, aortic valve stenosis with a mean gradient of 20 and an KAVYA of 1.4 cm2. Chest x-ray on July 11, large hiatal hernia. DIET: Heart healthy, carbohydrate consistent. ACTIVITY: As tolerated. FOLLOWUP: Follow up is with Dr. White for monitoring of the kidney function, management of pain, discussion on hiatal hernia and kyphosis, and to address any other health needs. Follow up with Dr. Romero as available for ongoing monitoring of the heart. Follow up with Dr. Coy, the patient's primary lens polisher hand, for ongoing treatment and care of COPD. DISCHARGE DISPOSITION: Home. CODE STATUS: Full. Reviewed with the patient this hospitalization, the importance of followup and to seek care precautions. No questions or further needs at the end of evaluation. TIME SPENT: Total time coordinating discharge is 40 minutes. Job ID: [id number] MTDD
[2019-07-15] MEDS: Fluticasone Propionate Nasal Spray 16 gm Bottle NASAL SCH (13:04)
[2019-07-15 13:08] VITALS: BP 110/59
== END 2019-07-15 14:00 | disposition home or self-care (01) | DRG 189 ==
LOC: ERS 08:16 → ERHOLD 13:14 → 2NO 13:14
PROVIDERS: ADMIT Internal Medicine; ATTEND Internal Medicine
DX: J96.01 Acute respiratory failure with hypoxia (principal); J44.1 Chronic obstructive pulmonary disease with (acute) exacerbation; J96.02 Acute respiratory failure with hypercapnia; M51.36 Other intervertebral disc degeneration, lumbar region; E78.5 Hyperlipidemia, unspecified; R32 Unspecified urinary incontinence; I25.10 Atherosclerotic heart disease of native coronary artery without angina pectoris; M19.90 Unspecified osteoarthritis, unspecified site; I12.9 Hypertensive chronic kidney disease with stage 1 through stage 4 chronic kidney disease, or unspecified chronic kidney disease; N18.3 Chronic kidney disease, stage 3 (moderate); E11.22 Type 2 diabetes mellitus with diabetic chronic kidney disease; M40.209 Unspecified kyphosis, site unspecified; K21.9 Gastro-esophageal reflux disease without esophagitis; K44.9 Diaphragmatic hernia without obstruction or gangrene; I37.1 Nonrheumatic pulmonary valve insufficiency; E66.9 Obesity, unspecified; I35.0 Nonrheumatic aortic (valve) stenosis; Z79.84 Long term (current) use of oral hypoglycemic drugs; Z79.52 Long term (current) use of systemic steroids; Z88.5 Allergy status to narcotic agent; Z68.29 Body mass index [BMI] 29.0-29.9, adult; Z95.5 Presence of coronary angioplasty implant and graft; Z90.49 Acquired absence of other specified parts of digestive tract; Z90.710 Acquired absence of both cervix and uterus; Z87.891 Personal history of nicotine dependence; Z88.0 Allergy status to penicillin; Z79.51 Long term (current) use of inhaled steroids; Z79.82 Long term (current) use of aspirin; Z79.899 Other long term (current) drug therapy
CPT/HCPCS: 36415; 36416; 71045; 80048; 80053; 83605; 83880; 85025; 87040; 87633; 93005; 93306; 94640; 94644; 96361; 96365; 96375; J0696; J1650; J2920; J2930; J3475; J3490; J7512; J7611; J7620

== ENCOUNTER 2019-08-23 09:01 | Outpatient (CLI) | payer MEDICARE, BC ==
--- NOTE | 2019-08-23 09:24 | RAD ---
EXAM: Chest PA and lateral: HISTORY: Cough COMPARISON: 01/15/2019, 07/11/2019 FINDINGS: Mediastinum: Stable large hiatal hernia. Air-fluid level is noted. Heart: Cardiomegaly Aorta: Atherosclerosis Pulmonary vessels: Normal Costophrenic angles: Costophrenic angles are clear. Lungs: No consolidation or masses. Chronic lung parenchymal changes. Pneumothorax: No pneumothorax Osseous structures: No osseous abnormalities IMPRESSION: 1 No acute cardiopulmonary process. 2. Atherosclerosis. 3. Stable large hiatal hernia.
== END 2019-08-23 09:02 | disposition home or self-care (01) ==
LOC: BICRAD 09:01
PROVIDERS: ATTEND Family Medicine
DX: R05 Cough (principal); I70.0 Atherosclerosis of aorta; K44.9 Diaphragmatic hernia without obstruction or gangrene
CPT/HCPCS: 71046

== ENCOUNTER 2019-09-11 14:32 | Observation (INO) | payer MEDICARE, BC ==
[2019-09-11] MEDS ORDERED: methylPREDNISolone Sod Succ/PF 125 MG/2 ML VIAL IVP SCH (14:56)
[2019-09-11 15:04] LABS: #Eosinphils 0.1 thou/uL (0.0-0.7); #Lymphocytes 0.8 thou/uL (1.20-3.40); %Basophils 0.8 % (0.0-1.0); %Lymphocytes 15.4 % (21.0-51.0); %Monocytes 0.7 % (0.0-10.0); %Neutrophils 82.1 % (42.0-75.0); Hemoglobin 14.4 g/dL (12.0-16.0); Mean Corpuscular HGB CONC 32.9 g/dL (32.0-36.0); Mean Corpuscular Hemoglobin 30.5 pg (27.0-31.0); Mean Corpuscular Volume 92.4 fL (78.0-98.0); Mean Platelet Volume 8.3 fL (7.4-10.4); Platelet Count 202 thou/uL (130-400); RBC Distribution Width 12.3 % (11.5-14.5); Red Blood Cell (RBC) Count 4.74 mill/uL (4.20-5.40); White Blood Cell (WBC) Count 4.9 thou/uL (4.8-10.8)
[2019-09-11] MEDS ORDERED: methylPREDNISolone Sod Succ 40 MG VIAL ONE (15:04)
[2019-09-11] MEDS ORDERED: Bacteriostatic Water 30 ML VIAL FS PRN (15:21)
[2019-09-11 15:26] LABS: ALT (SGPT) 11 U/L (8-55); AST (SGOT) 15 U/L (5-34); Albumin 4.5 g/dL (3.4-4.8); Alkaline Phosphatase 51 U/L (40-110); Anion Gap 16 mmol/L (10-20); BUN (Urea Nitrogen) 41 mg/dL (9.8-20.1); Bilirubin, Total 0.9 mg/dL (0.2-1.2); Calc. Creatinine Clearance 0 mL/min (70-130); Calcium 9.5 mg/dL (7.8-10.44); Carbon Dioxide 22 mmol/L (23-31); Chloride 108 mmol/L (98-107); Estimated GFR-MDRD 34; Globulin 2.5 g/dL (2.4-3.5); Glucose 265 mg/dL (83-110); Lipase 29 U/L (8-78); Potassium 4.9 mmol/L (3.5-5.1); Sodium 141 mmol/L (136-145)
--- NOTE | 2019-09-11 15:29 | RAD ---
FRONTAL RADIOGRAPH CHEST: 09/11/19 COMPARISON: 08/23/09 HISTORY: Chest pain. FINDINGS: There is a large hiatal hernia in the retrocardiac region. There is atherosclerotic calcification in the aortic arch. There is no pneumothorax, pleural fluid, lobar consolidation or alveolar edema. IMPRESSION: Stable appearance of the chest - large hiatal hernia. POS: KELY
[2019-09-11] MEDS ORDERED: Vancomycin HCl 1.75 GM in Sodium Chloride 0.9% 500 ML IVPB SCH (15:30)
[2019-09-11] MEDS ORDERED: Sodium Chloride 0.9% 2,000 ML IV SCH (15:30)
[2019-09-11 15:59] LABS: Bilirubin Negative (Negative); Blood, Urine Negative (Negative); Clarity Clear (Clear); Glucose, Urine (Dipstick) Normal (Negative); Leukocyte Negative Leu/uL (Negative); Nitrite Negative (Negative); Protein, Urine (Dipstick) Negative (Neg-Trace); Urobilinogen Normal mg/dL (Less than 2)
[2019-09-11 16:18] LABS: Actual Bicarbonate (HCO3a) 20.6 mEq/L (22-28); Analyzer IN Cardio ER; Base Excess (BEa) -3.8 mEq/L (-2.0 to +3.0); CO2 Tension 35.4 mmHg (35.0-45.0); Calcium, Ionized 1.17 mmol/L (1.12-1.30); Carboxyhemoglobin (COHb) 0.2 gm% (0.0-3.0); Hemoglobin (Hb) 13.6 g/dL (12.0-16.0); pH, Arterial 7.38 (7.35-7.45)
[2019-09-11 16:19] LABS: Puncture Site RR
[2019-09-11] MEDS ORDERED: Acetaminophen 325 MG TAB PO PRN ×2 (19:01→20:29)
[2019-09-11] MEDS ORDERED: Ondansetron ODT 4 MG TAB SL PRN (19:01)
[2019-09-11] MEDS ORDERED: Ondansetron PF 4 MG/2 ML Vial IVP PRN ×2 (19:01→20:29)
[2019-09-11] MEDS ORDERED: Ondansetron ODT 4 MG TAB PO PRN (20:29)
[2019-09-11] MEDS ORDERED: Albuterol Sulfate 2.5 mg/3 ml Neb NEB PRN (20:29)
[2019-09-11] MEDS ORDERED: Senokot S 8.6-50 MG TAB PO PRN (20:29)
[2019-09-11] MEDS ORDERED: Guaifenesin DM 100-10/5 ML UDCUP PO PRN (20:29)
[2019-09-11] MEDS ORDERED: Acetaminophen 650 MG Suppository PR PRN (20:29)
[2019-09-11] MEDS ORDERED: HumaLOG 300 UNITS/3 ML VIAL SC PRN ×2 (20:53)
[2019-09-11] MEDS ORDERED: Dextrose 5% in Water 1,000 ML IV PRN (20:53)
[2019-09-11] MEDS ORDERED: Dextrose 50% Abboject 50 ML SYRINGE SLOW IVP PRN (20:53)
[2019-09-11] MEDS ORDERED: Trospium 20 MG TAB PO SCH (21:00)
[2019-09-11] MEDS ORDERED: Pregabalin 75 MG CAP PO SCH (21:00)
[2019-09-11] MEDS ORDERED: Montelukast Sodium 10 mg Tablet PO SCH (21:00)
[2019-09-11] MEDS ORDERED: Simvastatin 20 MG TAB PO SCH (21:00)
[2019-09-11] MEDS ORDERED: methylPREDNISolone Sod Succ 40 MG VIAL IVP SCH (21:00)
[2019-09-11 21:16] LABS: Troponin I Less than 0.010 ng/mL (< 0.028)
--- NOTE | 2019-09-11 21:53 | HP ---
PRIMARY CARE PHYSICIAN: Don White MD CHIEF COMPLAINT: Chest pain and shortness of breath. HISTORY OF PRESENT ILLNESS: This is an 84-year-old white female with a known asthma and COPD that has been worsened over the last year, especially since her son about 6 months ago and she has been admitted to the hospital almost every month, last admitted in early July for COPD exacerbations. The patient reports that she has been having worsening dyspnea over the last few days and then developed some chest pain. Chest pain was left lower chest and wrapped around to the sternum associated with worsening dyspnea, mild cough that is actually better than it was earlier in the month, nonproductive. The patient was seen at her primary care doctor's office and put on a prednisone burst and cefdinir, but with the chest pain continuing today, she went into the emergency room. In the ER, she was found to be in severe respiratory distress, was oxygenating about 90% on room air, but was working very hard to breathe and had diffuse wheezing in bilateral lung bernstein. She had two nebulizer treatments followed by a long albuterol nebulizer. She had IV steroids as well and has some significant improvement in her symptoms. She also was given fluids and had a dose of Levaquin and vancomycin given in the emergency room. Chest x-ray was actually clear of any pneumonia. The patient is now on the floor. Her breathing she states is closer to her baseline, which has been pretty poor over the last 6 months. She does not use oxygen at home. She is currently requiring 2 L by nasal cannula. No active chest pain right now. REVIEW OF SYSTEMS: CONSTITUTIONAL: No fevers, no chills. EYES: No double vision or blurred vision. ENT: No congestion or drainage. She does have a little sore throat when she coughs a lot. CARDIOVASCULAR: See HPI. No palpitations or racing heart. PULMONARY: See HPI. She has chest tightness, wheezing, shortness of breath. GASTROINTESTINAL: No abdominal pain. No nausea or vomiting. No diarrhea or constipation. GENITOURINARY: No dysuria or hematuria. MUSCULOSKELETAL: She has some bilateral lower extremity pain, especially on the left that comes from bad back. This is actually better than that was in the recent past. It is actually improving. SKIN: No rashes or lesions she has noted. NEUROLOGIC: No numbness, tingling, or focal weakness. PSYCHIATRIC: She has had some anxiety and gets tearful when she thinks about how her disease processes are progressing. Her has also been concerned about some difficulty with her memory over the last couple of years. States that she gets confused fairly easily and has hard time remembering some of the details of things that have happened. PAST MEDICAL HISTORY: Taken from the chart and confirmed with the patient and . 1. Asthma/COPD. 2. Hypertension. 3. Diaphragmatic hernia. 4. Hyperlipidemia. 5. Diabetes mellitus type 2, not requiring any medications recently. 6. Coronary artery disease. 7. Urinary incontinence. 8. Arthritis. 9. Paroxysmal SVT. 10. Moderate aortic stenosis. 11. Diastolic dysfunction. PAST SURGICAL HISTORY: 1. Coronary stent placement. 2. Hysterectomy with bilateral salpingo-oophorectomy. 3. Breast biopsy. 4. Cholecystectomy. 5. Cardiac ablation. SOCIAL HISTORY: The patient is a former smoker, quit many years ago. Smoked for about 26 years. No alcohol. No illicit drugs. She is , lives with her . She is full code and her is her medical decision maker. FAMILY HISTORY: Remarkable for heart disease in her mother and cancer in her father. ALLERGIES: 1. OXYCODONE. 2. PENICILLINS. CURRENT MEDICATIONS: 1. Cefdinir 300 mg twice a day. 2. DuoNeb 4 times a day as needed, which is actually given scheduled. 3. Albuterol sulfate inhaler as needed. 4. Nexium 40 mg daily. 5. Prednisone taper pack just starting it yesterday. 6. Aspirin 81 mg daily. 7. Ferrous sulfate 325 mg daily. 8. Flonase 2 sprays in each nostril twice a day. 9. Loratadine 5 mg daily. 10. Losartan/hydrochlorothiazide 50/12.5 mg daily. 11. Dulera 200/5 mcg two puffs inhaled twice a day. 12. Singulair 10 mg at night. 13. Centrum Silver 1 tablet daily. 14. Lyrica 150 mg at night. 15. Simvastatin 20 mg at night. 16. VESIcare 5 mg twice a day. PHYSICAL EXAMINATION: VITAL SIGNS: Blood pressure 136/69, pulse 107, respirations 21, O2 saturation 94% on 2 L nasal cannula, temperature 98.4. GENERAL: This is a well-developed elderly white female with mild respiratory distress, especially when she tries to speak, appears fairly comfortable. She stays completely at rest on 2 L nasal cannula. HEENT: Pupils are equal, round, and reactive to light. Oropharynx clear without lesions, erythema, or exudate. NECK: Supple. No lymphadenopathy. No thyroid nodules or enlargement. No JVD. HEART: Regular rate and rhythm. No murmurs, rubs, or gallops. LUNGS: The patient has bilateral wheezes diffusely throughout the lung bernstein. She has some mild increased work of breathing and gets worse with any sort of exertion or talking. No focal findings. ABDOMEN: Soft, nontender to palpation. Normoactive bowel sounds. No hepatosplenomegaly or other masses. EXTREMITIES: No clubbing, cyanosis, or edema. SKIN: No rashes or other lesions noted. NEUROLOGIC: The patient has intact strength and sensation in all extremities. No facial droop. PSYCHIATRIC: The patient is alert and oriented x3. She does have a little confusion about some aspects for history, however. LABORATORY DATA: CBC within normal limits. Arterial blood gas with a normal pH, normal pCO2, and high oxygen on nasal cannula. Complete metabolic panel is notable for chloride of 108, carbon dioxide of 22, BUN of 41, creatinine of 1.47, which is about her baseline over the last few months. Glucose of 265. The rest is normal. Magnesium was normal. Lactic acid was negative. Brain natriuretic peptide was 134, which is about stable for her. Troponin was negative x1. EKG done in the emergency room showed some sinus tachycardia with some fusion complexes and left axis deviation. No significant ST-segment changes. Chest x-ray, I did review the chest x-ray done in the emergency room along with the radiologist's report. It does show a stable appearance of the chest with a large hiatal hernia, but no evidence of consolidation or acute pneumonia or other acute process. ASSESSMENT: 1. Chronic obstructive pulmonary disease with exacerbation. The patient has no evidence of pneumonia, so I will back off antibiotics. We will discontinue with an oral Levaquin daily. We will give DuoNebs scheduled q.6 hours and then albuterol as needed in between. We will also continue Solu-Medrol 40 mg IV q.6 hours and continue patient on oxygen. Talking to the patient right now, she actually talk and says that her COPD is near this at baseline, uncertain exactly how severe her exacerbation is compared to her baseline. We will have pulmonology evaluate her in the morning. We will leave her on observation status for now since she has been saturating okay even on arrival on room air and is breathing a lot easier now, but I suspect that tomorrow she will need some continued hospitalization and may need to be switched over to inpatient at that time. 2. Chest pain, now resolved secondary to #1, patient does not have any evidence of cardiac issue going on at this point. 3. We will trend the troponins to make sure they do not bump and continue her aspirin, but I suspect she will need any further cardiac evaluation this hospitalization just work on her pulmonary status. 4. Hiatal/diaphragmatic hernia. The patient likely has worsening of her breathing status from this per Dr. Tidwell's previous evaluation in the hospital. Uncertain if anything can be done about it specifically, but we will continue for now her PPI while she is in the hospital. 5. Coronary artery disease. Continue aspirin and statin. 6. Hypertension. We will resume the patient's home medications. 7. Deep venous thrombosis prophylaxis. Put the patient on Lovenox subcu in the hospital and have Physical Therapy evaluate her and have her ambulate. CODE STATUS: The patient is a full resuscitation, should she be incapacitated, her is her medical decision maker. His name is Mike Pennington. Job ID: [id number]
[2019-09-11] MEDS: Fluticasone Propionate Nasal Spray 16 gm Bottle NASAL SCH (21:59)
[2019-09-12] MEDS: methylPREDNISolone Sod Succ 40 MG VIAL IVP SCH ×3 (00:23→12:43)
[2019-09-12 05:35] LABS: Anion Gap 11 mmol/L (10-20); BUN (Urea Nitrogen) 39 mg/dL (9.8-20.1); Calc. Creatinine Clearance 47 mL/min (70-130); Calcium 8.7 mg/dL (7.8-10.44); Carbon Dioxide 21 mmol/L (23-31); Chloride 113 mmol/L (98-107); Estimated GFR-MDRD 52; Glucose 169 mg/dL (83-110); Potassium 4.3 mmol/L (3.5-5.1); Sodium 141 mmol/L (136-145)
[2019-09-12 05:52] LABS: #Lymphocytes 0.6 thou/uL (1.20-3.40); #Monocytes 0.1 thou/uL (0.11-0.59); #Neutrophils 3.7 thou/uL (1.40-6.50); %Basophils 0.1 % (0.0-1.0); %Eosinophils 0.9 % (0.0-10.0); %Lymphocytes 14.2 % (21.0-51.0); %Monocytes 1.5 % (0.0-10.0); %Neutrophils 83.2 % (42.0-75.0); Hemoglobin 11.4 g/dL (12.0-16.0); Mean Corpuscular HGB CONC 33.1 g/dL (32.0-36.0); Mean Corpuscular Hemoglobin 30.8 pg (27.0-31.0); Mean Corpuscular Volume 93.2 fL (78.0-98.0); Mean Platelet Volume 8.3 fL (7.4-10.4); Platelet Count 142 thou/uL (130-400); Red Blood Cell (RBC) Count 3.68 mill/uL (4.20-5.40); White Blood Cell (WBC) Count 4.5 thou/uL (4.8-10.8)
[2019-09-12] MEDS ORDERED: Mometasone/Formoterol 120 PUFF INHALER INH SCH (06:30)
[2019-09-12 06:44] LABS: #Eosinphils 0.1 thou/uL (0.0-0.7); #Lymphocytes 0.7 thou/uL (1.20-3.40); #Monocytes 0.1 thou/uL (0.11-0.59); #Neutrophils 4.1 thou/uL (1.40-6.50); %Eosinophils 1.4 % (0.0-10.0); %Lymphocytes 14.9 % (21.0-51.0); %Neutrophils 81.7 % (42.0-75.0); Hemoglobin 11.4 g/dL (12.0-16.0); Mean Corpuscular HGB CONC 33.3 g/dL (32.0-36.0); Mean Corpuscular Hemoglobin 30.8 pg (27.0-31.0); Mean Corpuscular Volume 92.6 fL (78.0-98.0); Mean Platelet Volume 8.5 fL (7.4-10.4); Platelet Count 146 thou/uL (130-400); Red Blood Cell (RBC) Count 3.68 mill/uL (4.20-5.40)
[2019-09-12] MEDS ORDERED: Ferrous Sulfate 325 MG TAB PO SCH (08:00)
[2019-09-12] MEDS ORDERED: Multivitamin W/ Minerals 1 TAB PO SCH (09:00)
[2019-09-12] MEDS ORDERED: Aspirin 81 mg Enteric Coated Tablet PO SCH (09:00)
[2019-09-12] MEDS ORDERED: Loratadine 5 MG/5 ML UDCUP PO SCH (09:00)
[2019-09-12] MEDS ORDERED: Enoxaparin Sodium 40 MG/0.4 ML SYRINGE SC SCH (09:00)
[2019-09-12] MEDS: Fluticasone Propionate Nasal Spray 16 gm Bottle NASAL SCH (09:04)
[2019-09-12] MEDS ORDERED: Magnesium 2 GM/50 ML 2 GM in Premix Bag 1 BAG IVPB SCH (09:45)
--- NOTE | 2019-09-12 10:35 | CON ---
DATE OF CONSULTATION: HISTORY OF PRESENT ILLNESS: Albina Pennington is an 84-year-old female, well known to our office presented with chest pain, shortness of breath, coughing, and wheezing. X-ray showed yesterday no acute infiltrates. Large hiatal hernia. She is not a candidate for any surgical intervention. She is coughing and wheezing. She has limitation of activity. MEDICAL HISTORY: Extensive medical history is well outlined in previous medical records. Pertinent for chronic asthma, COPD, diabetes, hypertension, chronic pain, renal failure, spinal stenosis, tachycardia, arthritis, major anxiety. PREVIOUS SURGERIES: Stents, gallbladder surgery, hysterectomy, breast biopsy, AV node ablation. SOCIAL HISTORY: Former smoker, quit 10 years ago. No alcohol. ALLERGIES: OXYCODONE, PENICILLIN, PERCOCET. HOME MEDICATIONS: 1. Dulera. 2. Singulair 10. 3. Losartan. 4. Claritin. 5. DuoNeb. 6. Flonase. 7. Omeprazole. Since admission, she has now been started on neb treatments, antibiotics, Singulair, Dulera, and prednisone. REVIEW OF SYSTEMS: 10-point negative. PHYSICAL EXAMINATION: GENERAL: She is in no acute respiratory distress. VITAL SIGNS: Blood pressure is 136/65, saturations 98% on room air, respirations 20, temperature 97, pulse 90. CHEST: Bilateral wheezing. CARDIAC: Normal S1 and S2. No gallops. ABDOMEN: No masses. LABORATORY DATA: White count is normal. H and H are unremarkable. Platelet count is normal. Lytes are normal. ASSESSMENT AND PLAN: 1. Chest pain, etiology unclear. 2. Large hiatal hernia. Not a surgical candidate. 3. Chronic pain. 4. Anxiety. 5. Coronary artery disease. 6. Hypertension. 7. Asthma. 8. Low-dose prednisone. 9. Neb treatments. 10. Supportive care. 11. Home any time. Job ID: [id number]
[2019-09-12 16:44] VITALS: BP 119/68; TEMP 98.2
--- NOTE | 2019-09-12 17:30 | DIS ---
DATE OF ADMISSION: 09/11/2019 DATE OF DISCHARGE: 09/12/2019 DISCHARGE DISPOSITION: Home with home health care. FOLLOWUP: Follow up with primary care physician, Dr. Don White and primary life skills trainer, Dr. Coy as scheduled. The patient was seen and examined on the day of discharge. Denies any new complaints. Shortness of breath has significantly improved. BRIEF HOSPITAL COURSE: The patient is an 84-year-old female with asthma/COPD as well as large hiatal hernia, presented to the hospital with shortness of breath along with chest discomfort. She was recently started on oral prednisone along with antibiotic. Please refer to the history and physical by Dr. Evan Alberto for further details. The patient was admitted to the hospital with a diagnosis of COPD exacerbation. She showed good improvement with IV steroids along with oral antibiotics, nebulizer treatment, and oxygen. She is currently on room air. The patient has been cleared by Pulmonary for discharge. No changes in her medications were made. She was advised to continue prednisone taper along with oral antibiotics as prescribed by Dr. White. Her blood cultures remain negative. Chest x-ray was negative for infiltrate. FINAL DIAGNOSES: 1. Acute hypoxic respiratory failure secondary to asthma/chronic obstructive pulmonary disease exacerbation, improved. 2. Hypertension. 3. Large hiatal hernia. 4. Diabetes mellitus, type 2. 5. Hyperlipidemia. 6. Coronary artery disease. 7. Moderate aortic stenosis. 8. Chronic diastolic heart failure, compensated. 9. Penicillin allergy. 10. Chronic kidney disease, stage 3 with acute kidney injury. The patient was advised to hold losartan/hydrochlorothiazide for 2 more days. Repeat basic metabolic profile after 1 week is recommended. Primary care physician advised to follow. 11. The patient and the family understand the above plan of care. Job ID: [id number]
== END 2019-09-12 16:56 | disposition home health service (06) ==
LOC: ERS 14:32 → 2SW 16:54
PROVIDERS: ADMIT Emergency Medicine; ATTEND Internal Medicine
DX: J44.1 Chronic obstructive pulmonary disease with (acute) exacerbation (principal); I13.0 Hypertensive heart and chronic kidney disease with heart failure and stage 1 through stage 4 chronic kidney disease, or unspecified chronic kidney disease; E11.22 Type 2 diabetes mellitus with diabetic chronic kidney disease; N18.3 Chronic kidney disease, stage 3 (moderate); I50.32 Chronic diastolic (congestive) heart failure; I25.10 Atherosclerotic heart disease of native coronary artery without angina pectoris; I35.0 Nonrheumatic aortic (valve) stenosis; K44.9 Diaphragmatic hernia without obstruction or gangrene; F41.9 Anxiety disorder, unspecified; G89.29 Other chronic pain; Z79.51 Long term (current) use of inhaled steroids; Z79.82 Long term (current) use of aspirin; Z79.899 Other long term (current) drug therapy; Z87.891 Personal history of nicotine dependence; Z88.0 Allergy status to penicillin; Z88.5 Allergy status to narcotic agent; Z88.6 Allergy status to analgesic agent
CPT/HCPCS: 51701; 71045; 80048; 80053; 81003; 82805; 82962 ×2; 83605; 83690; 83735; 83880; 84484 ×2; 85025 ×3; 87040; 93005; 94640 ×4; 94644; 94760; 96365; 96366; 96367 ×2; 96372; 96375; 96376; 97116; 97139 ×2; 97535; 99285; G0378 ×3; 36415; 36416; A4353; J1650; J1956; J2920; J3370; J3475; J7050; J7620

== ENCOUNTER 2019-09-29 19:10 | Observation (INO) | payer MEDICARE, BC ==
[2019-09-29] MEDS ORDERED: Albuterol Sulfate 2.5 mg/3 ml Neb ONE (19:26)
[2019-09-29] MEDS ORDERED: methylPREDNISolone Sod Succ/PF 125 MG/2 ML VIAL ONE (19:39)
[2019-09-29 20:02] LABS: #Eosinphils 0.6 thou/uL (0.0-0.7); #Lymphocytes 1.3 thou/uL (1.20-3.40); #Monocytes 0.4 thou/uL (0.11-0.59); %Basophils 0.2 % (0.0-1.0); %Eosinophils 6.4 % (0.0-10.0); %Lymphocytes 13.5 % (21.0-51.0); %Monocytes 4.5 % (0.0-10.0); %Neutrophils 75.4 % (42.0-75.0); Mean Corpuscular HGB CONC 33.5 g/dL (32.0-36.0); Mean Corpuscular Hemoglobin 31.2 pg (27.0-31.0); Mean Corpuscular Volume 93.1 fL (78.0-98.0); Mean Platelet Volume 11.5 fL (7.4-10.4); Platelet Count 135 thou/uL (130-400); Red Blood Cell (RBC) Count 4.16 mill/uL (4.20-5.40); White Blood Cell (WBC) Count 9.3 thou/uL (4.8-10.8)
--- NOTE | 2019-09-29 20:23 | RAD ---
EXAM: Single view of the chest HISTORY: Difficulty breathing/shortness of breath COMPARISON: 09/11/2019 FINDINGS: Single view of the chest shows a normal sized cardiomediastinal silhouette. There is a lar ge hiatal hernia. Atherosclerotic calcifications are seen in the aorta. There is no evidence of consolidation, mass, or pleural effusion. Degenerative changes are seen in the spine. Hardware seen i n the right shoulder. IMPRESSION: 1. No evidence of acute cardiopulmonary disease 2. Large hiatal hernia
[2019-09-29 21:25] LABS: Calcium 9.4 mg/dL (7.8-10.44); Chloride 110 mmol/L (98-107); Potassium 5.4 mmol/L (3.5-5.1); Sodium 138 mmol/L (136-145)
[2019-09-29 21:26] LABS: Globulin 2.4 g/dL (2.4-3.5); Glucose 189 mg/dL (83-110); Protein, Total 6.4 g/dL (6.0-8.3)
[2019-09-29 21:28] LABS: Anion Gap 14 mmol/L (10-20); Bilirubin, Total 0.9 mg/dL (0.2-1.2); Carbon Dioxide 19 mmol/L (23-31)
[2019-09-29 21:29] LABS: Alkaline Phosphatase 46 U/L (40-110); Calc. Creatinine Clearance 0 mL/min (70-130); Estimated GFR-MDRD 43
[2019-09-29 21:30] LABS: BUN (Urea Nitrogen) 44 mg/dL (9.8-20.1)
[2019-09-29 21:31] LABS: AST (SGOT) 16 U/L (5-34)
[2019-09-29 21:32] LABS: ALT (SGPT) 18 U/L (8-55); CK (CPK) 25 U/L (29-168); Magnesium 1.5 mg/dL (1.6-2.6)
[2019-09-29] MEDS ORDERED: Magnesium 2 GM/50 ML BAG (IN WATER) ONE (22:18)
[2019-09-29] MEDS ORDERED: PROVENTIL INHALER 6.7 G (200 INHALATIONS) INH PRN (22:43)
[2019-09-29] MEDS ORDERED: Acetaminophen 650 MG Suppository PR PRN (22:53)
[2019-09-29] MEDS ORDERED: Dextrose 5% in Water 1,000 ML IV PRN (22:56)
[2019-09-29] MEDS ORDERED: Dextrose 50% Abboject 50 ML SYRINGE SLOW IVP PRN (22:56)
[2019-09-29] MEDS ORDERED: HumaLOG 300 UNITS/3 ML VIAL SC PRN (22:56)
[2019-09-30 00:39] LABS: Actual Bicarbonate (HCO3a) 18.4 mEq/L (22-28); Base Excess (BEa) -6.4 mEq/L (-2.0 to +3.0); CO2 Tension 34.3 mmHg (35.0-45.0); Calcium, Ionized 1.25 mmol/L (1.12-1.30); Carboxyhemoglobin (COHb) 0.3 gm% (0.0-3.0); Hemoglobin (Hb) 12.1 g/dL (12.0-16.0); O2 Tension (PaO2) 106.6 mmHg (> 60.0); Potassium - ABG Lab 4.83 mmol/L (3.70-5.30); pH, Arterial 7.35 (7.35-7.45)
[2019-09-30 00:40] LABS: ALV-art Gradient 107.205 (0-20); Puncture Site RRA
[2019-09-30] MEDS: methylPREDNISolone Sod Succ 40 MG VIAL IVP SCH ×4 (02:06→17:56)
--- NOTE | 2019-09-30 04:01 | PDOC.HHP ---
Hospitalist HPI - History of Present Illness Shortness of breath History of Present Illness: Ms. Pennington is a pleasant 84 year old woman presenting with complaints of shortness of breath that became significantly worse today. She reports having chest congestion for the last week with a rattling in her chest and cough but inability to bring up sputum. She began taking Mucinex one week ago and it significantly helped. She was advised by Dr. White to continue taking it. Her symptoms have been stable up until today when she suddenly began breathing heavily and felt breathless. She has a known history of COPD and has required admission in the past for COPD exacerbation. Reports using her nebs 4 times a day at home as she normally does without any improvement with her breathing today. At present, she and her states she feels significantly better compared to when she first came in. She has been given duo nebs and steroids. Denies having any recent fevers, chills or sweats. Denies any chest pain or lightheadedness. No headaches or dizziness. No n/v. no bowel changes. 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 ED Course: Patient with sats of 99% on 4L. Given Magnesium Sulfate 2 g. Duo neb x 2. 125 mg of methylprednisolone. An albuterol neb given as well. She had significant improvement. Chest xray done showed no acute process. She has a known large hiatal hernia. Labs notable for Mg 1.5, K+ 5.4, BUN 44, Creat 1.20, GFR 43. BNP 26.1. WCC 9.3, Hgb 13., Platelets 135, neutrophils 75.4% Hospitalist ROS - Review of Systems Constitutional: reports: malaise. denies: fever, chills, sweats, weakness, other Eyes: denies: pain, vision change, conjunctivae inflammation, eyelid inflammation, redness, other ENT: denies: ear pain, ear discharge, nose pain, nose discharge, nose congestion , mouth pain, mouth swelling, throat pain, throat swelling, other Respiratory: reports: cough, shortness of breath, SOB with excertion. denies: dry, hemoptysis, pleuritic pain, sputum, wheezing, other Cardiovascular: denies: chest pain, palpitations, orthopnea, paroxysmal noc. dyspnea, edema, light headedness, other Gastrointestinal: denies: nausea, vomiting, abdominal pain, diarrhea, constipation, melena, hematochezia, other Genitourinary: denies: dysuria, frequency, incontinence, hematuria, retention, other Musculoskeletal: reports: back pain. denies: neck pain, shoulder pain, arm pain , hand pain, leg pain, foot pain, other Skin: denies: rash, lesions, rusty, bruising, other Neurological: denies: weakness, numbness, incoordination, change in speech, confusion, seizures, other - Medication Medications: Active Medications Generic Name Dose Route Start Last Admin Trade Name Freq PRN Reason Stop Dose Admin Influenza Virus Vaccine 180 mcg 09/30/19 09:00 09/30/19 01:49 Fluzone High-Dose 2019- Syr IM 09/30/19 09:01 Not Given .ONCE ONE Methylprednisolone Sodium Succinate 40 mg 09/29/19 23:59 09/30/19 02:06 Solu-Medrol IVP Not Given Q6HR JIGNESH ALLERGIES: Oxycodone, aspirin, codeine and penicillin CURRENT MEDICATIONS: albuterol Sat Sep 29, 2019 20:34 GERMAINE Mishra Susannah AEROSOL (GRAM) : Strength - 90 mcg : INHALATION Patient Dose: Unknown. clindamycin HCl TueSep 29, 2019 20:34 GERMAINE Mishra Susannah capsule : Strength - 150 mg : ORAL Patient Dose: 300 mg Oral every 8 hours. predniSONE TueSep 29, 2019 20:34 GERMAINE Mishra Susannah TABLET : Strength - 5 mg : ORAL Patient Dose: 20 mg Oral once a day (in the morning). loratadine Sat Sep 29, 2019 20:35 GERMAINE Mishra Susannah solution : Strength - 5 mg/5 mL : ORAL Patient Dose: 5 mL Oral once a day. ProAir RespiClick TueSep 29, 2019 20:35 GERMAINE Mishra Susannah aerosol powdr breath activated : Strength - 90 mcg : INHALATION Patient Dose: 1 puff(s) Inhaler every 4 hours prn. Dulera TueSep 29, 2019 20:36 GERMAINE Mishra Susannah HFA aerosol inhaler : Strength - 200 mcg-5 mcg/actuation : INHALATION Patient Dose: 1 puff(s) Inhaler every 4 hours prn. DuoNeb TueSep 29, 2019 20:37 GERMAINE Mishra, [facility] solution for nebulization : Strength - 0.5 mg-3 mg (2.5 mg base)/3 mL : INHALATION Patient Dose: 3 mL Nebulize every 6 hours PRN. Hospitalist History - Past Medical History Cardiac: reports: CAD, CHF, HTN, Hyperlipidemia, Aortic stenosis Pulmonary: reports: asthma, COPD Gastrointestinal: reports: Other (large hiatal hernia) Psych: reports: Anxiety Musculoskeletal: reports: Other (carpal tunnel) Renal/: reports: Chronic renal insuff Endocrine: reports: Diabetes - Past Surgical History Past Surgical History: reports: Cholecystectomy, Hysterectomy, Other (coronary artery stent, breast biopsy, x 2 AV node ablation) - Social History Smoking Status: Former smoker Alcohol: reports: None Drugs: reports: none Living Situation: With Family Activity level: wheelchair bound - Exam General Appearance: NAD Eye: PERRL, anicteric sclera ENT: dry oral mucosa Neck: supple, symmetric Heart: RRR Respiratory: wheezes Respiratory - other findings: breathing slightly labored, able to speak in full sentences Gastrointestinal: soft, non-tender, non-distended, normal bowel sounds, no guarding, no rigidity Extremities: no edema Skin: no lesions, no rashes Neurological: cranial nerve grossly intact, no focal deficits Musculoskeletal: normal tone, normal strength, no muscle wasting Psychiatric: normal affect, normal behavior, A&O x 3 Hospitalist Results - Labs Result Diagrams: 09/29/19 19:26 09/29/19 20:34 Lab results: WBC 9.3 thou/uL (4.8-10.8) 09/29/19 19: Hgb 13.0 g/dL (12.0-16.0) 09/29/19 19: Hct 38.7 % (36.0-47.0) 09/29/19 19: MCV 93.1 fL (78.0-98.0) 09/29/19 19: Plt Count 135 thou/uL (130-400) 09/29/19 19: Neutrophils % 75.4 % (42.0-75.0) H 09/29/19 19:26 ABG pH 7.35 (7.35-7.45) 09/30/19 00:29 ABG pCO2 34.3 mmHg (35.0-45.0) L 09/30/19 00:29 ABG pO2 106.6 mmHg (> 60.0) H 09/30/19 00:29 Sodium 138 mmol/L (136-145) 09/29/19 20:34 Potassium 5.4 mmol/L (3.5-5.1) H 09/29/19 20:34 Chloride 110 mmol/L (98-107) H 09/29/19 20:34 Carbon Dioxide 19 mmol/L (23-31) L 09/29/19 20:34 BUN 44 mg/dL (9.8-20.1) H 09/29/19 20:34 Creatinine 1.20 mg/dL (0.6-1.1) H 09/29/19 20:34 Glucose 189 mg/dL (83-110) H 09/29/19 20:34 Calcium 9.4 mg/dL (7.8-10.44) 09/29/19 20:34 Total Bilirubin 0.9 mg/dL (0.2-1.2) 09/29/19 20:34 AST 16 U/L (5-34) 09/29/19 20:34 ALT 18 U/L (8-55) 09/29/19 20:34 Alkaline Phosphatase 46 U/L (40-110) 09/29/19 20:34 Creatine Kinase 25 U/L (29-168) L 09/29/19 20:34 B-Natriuretic Peptide 26.1 pg/mL (0-100) 09/29/19 19:26 Serum Total Protein 6.4 g/dL (6.0-8.3) 09/29/19 20:34 Albumin 4.0 g/dL (3.4-4.8) 09/29/19 20:34 Hospitalist H&P A/P - Problem (1) COPD exacerbation Code(s): J44.1 - CHRONIC OBSTRUCTIVE PULMONARY DISEASE W (ACUTE) EXACERBATION Status: Acute (2) Hypomagnesemia Code(s): E83.42 - HYPOMAGNESEMIA Status: Acute (3) Hyperkalemia Code(s): E87.5 - HYPERKALEMIA Status: Acute (4) Hypertension Code(s): I10 - ESSENTIAL (PRIMARY) HYPERTENSION Status: Chronic (5) CAD (coronary artery disease) Code(s): I25.10 - ATHSCL HEART DISEASE OF [place] CORONARY ARTERY W/O ANG PCTRS Status: Chronic Qualifiers: (6) CKD (chronic kidney disease), stage III Code(s): N18.3 - CHRONIC KIDNEY DISEASE, STAGE 3 (MODERATE) Status: Chronic (7) GERD (gastroesophageal reflux disease) Code(s): K21.9 - GASTRO-ESOPHAGEAL REFLUX DISEASE WITHOUT ESOPHAGITIS Status: Chronic (8) Hiatal hernia Code(s): K44.9 - DIAPHRAGMATIC HERNIA WITHOUT OBSTRUCTION OR GANGRENE Status: Chronic (9) Diabetes mellitus Code(s): E11.9 - TYPE 2 DIABETES MELLITUS WITHOUT COMPLICATIONS Status: Chronic (10) Moderate aortic stenosis Code(s): I35.0 - NONRHEUMATIC AORTIC (VALVE) STENOSIS Status: Chronic - Plan Plan: Continue to monitor O2 sats. Duo nebs q4H, continue steroids. Add Levaquin given high risk, as per Dr. Freeman. ABG ordered. Gentle IV fluids, given history of CHF. Replace electrolytes and continue to monitor. Monitor BP and resume home meds once verified. Monitor blood glucose. Initiate sliding scale. Reconcile home meds once verified. GI prophylaxis with famotidine. DVT prophylaxis with mechanical SCDs. CODE STATUS: FULL Surrogate decision maker is her : Mike Pennington.
[2019-09-30 04:55] LABS: #Lymphocytes 0.4 thou/uL (1.20-3.40); %Eosinophils 0.7 % (0.0-10.0); %Monocytes 0.5 % (0.0-10.0); %Neutrophils 86.9 % (42.0-75.0); Hemoglobin 12.2 g/dL (12.0-16.0); Mean Corpuscular Hemoglobin 30.6 pg (27.0-31.0); Mean Corpuscular Volume 92.8 fL (78.0-98.0); Mean Platelet Volume 8.8 fL (7.4-10.4); Platelet Count 141 thou/uL (130-400); RBC Distribution Width 12.7 % (11.5-14.5); Red Blood Cell (RBC) Count 3.99 mill/uL (4.20-5.40); White Blood Cell (WBC) Count 3.5 thou/uL (4.8-10.8)
[2019-09-30 05:22] LABS: Anion Gap 16 mmol/L (10-20); BUN (Urea Nitrogen) 43 mg/dL (9.8-20.1); Calc. Creatinine Clearance 44 mL/min (70-130); Calcium 9.2 mg/dL (7.8-10.44); Carbon Dioxide 17 mmol/L (23-31); Chloride 109 mmol/L (98-107); Estimated GFR-MDRD 48; Glucose 201 mg/dL (83-110); Magnesium 2.1 mg/dL (1.6-2.6); Sodium 137 mmol/L (136-145)
[2019-09-30] MEDS: Mometasone 200 MCG/Formoterol 5 MCG 120 PUFF INHALER INH SCH ×2 (07:08→18:34)
[2019-09-30] MEDS: HumaLOG 300 UNITS/3 ML VIAL SC PRN ×2 (07:41→17:56)
[2019-09-30] MEDS: Famotidine 20 MG TAB PO SCH (08:11)
[2019-09-30] MEDS ORDERED: FLU VACC TS2019-20(65YR UP)/PF 180 MCG/0.5 ML SYRINGE IM ONE (09:00)
[2019-09-30] MEDS: Acetaminophen 325 MG TAB PO PRN ×2 (12:30→17:57)
--- NOTE | 2019-09-30 15:56 | PDOC.HOSPP ---
- Subjective Encounter Date: 09/30/19 Subjective: Complaining of SOB, COUGH AND WHEEZING. - Objective Vital Signs & Weight: Vital Signs (12 hours) Temp Pulse Resp BP Pulse Ox 09/30/19 13:58 80 14 09/30/19 11:43 97.8 F 104 H 20 121/58 L 94 L 09/30/19 10:39 76 16 09/30/19 07:32 97.5 F L 91 20 123/56 L 93 L 09/30/19 07:11 80 16 09/30/19 04:44 22 H 09/30/19 04:18 97.5 F L 87 24 H 156/67 H 99 Weight Weight 159 lb I&O: 09/29/19 09/30/19 10/01/19 06:59 06:59 06:59 Intake Total 240 Output Total 250 200 Balance -10 -200 Result Diagrams: 09/30/19 04:34 09/30/19 04:34 Additional Labs: Accuchecks 09/30/19 09/30/19 09/30/19 11:49 07:29 00:04 POC Glucose 155 H 166 H 230 H Hospitalist ROS - Medication Medications: Active Medications Generic Name Dose Route Start Last Admin Trade Name Freq PRN Reason Stop Dose Admin Acetaminophen 650 mg 09/29/19 22:53 09/30/19 12:30 Tylenol PO 650 mg Q4H PRN Administration Headache/Fever/Mild Pain (1-3) Albuterol/Ipratropium 3 ml 09/30/19 07:00 09/30/19 13:58 Duoneb NEB 3 ml [id number] JIGNESH Administration Famotidine 20 mg 09/30/19 09:00 09/30/19 08:11 Pepcid PO 20 mg QAM JIGNESH Administration Insulin Human Lispro 0 units 09/29/19 22:56 09/30/19 07:41 Humalog SC 2 unit .MILD SLIDING SCALE PRN Administration Mild Correctional Scale Methylprednisolone Sodium Succinate 40 mg 09/29/19 23:59 09/30/19 11:38 Solu-Medrol IVP 40 mg Q6HR JIGNESH Administration Mometasone Furoate/Formoterol Fumar 2 puff 09/30/19 06:30 09/30/19 07:08 Dulera 200 Mcg/5 Mcg Inhaler INH 2 puff BID-RT JIGNESH Administration - Exam General Appearance: NAD ENT: normocephalic atraumatic Neck: supple, no JVD Heart: RRR, no murmur, no gallops, no rubs, normal peripheral pulses Respiratory: wheezes Gastrointestinal: soft, non-tender, non-distended, normal bowel sounds Neurological: cranial nerve grossly intact, no focal deficits Hosp A/P (1) COPD exacerbation Code(s): J44.1 - CHRONIC OBSTRUCTIVE PULMONARY DISEASE W (ACUTE) EXACERBATION Status: Acute (2) MAKENNA (acute kidney injury) Code(s): N17.9 - ACUTE KIDNEY FAILURE, UNSPECIFIED Status: Acute (3) Hyperkalemia Code(s): E87.5 - HYPERKALEMIA Status: Acute (4) Diabetes mellitus Code(s): E11.9 - TYPE 2 DIABETES MELLITUS WITHOUT COMPLICATIONS Status: Chronic (5) Hypertension Code(s): I10 - ESSENTIAL (PRIMARY) HYPERTENSION Status: Chronic - Plan Continue scheduled nebulizer treatments, corticosteroids, and antibiotics.
[2019-10-01] MEDS: methylPREDNISolone Sod Succ 40 MG VIAL IVP SCH ×3 (00:22→12:04)
[2019-10-01] MEDS: Acetaminophen 325 MG TAB PO PRN (02:33)
[2019-10-01] MEDS: Mometasone 200 MCG/Formoterol 5 MCG 120 PUFF INHALER INH SCH (07:31)
[2019-10-01 07:40] VITALS: BP 132/62; TEMP 98.4
[2019-10-01] MEDS: Famotidine 20 MG TAB PO SCH (08:32)
--- NOTE | 2019-10-01 17:41 | DIS ---
DATE OF ADMISSION: 09/29/2019 DATE OF DISCHARGE: 10/01/2019 DISCHARGE DIAGNOSES: 1. Chronic obstructive pulmonary disease exacerbation. 2. Acute kidney injury. 3. Hyperkalemia. 4. Diabetes mellitus. 5. Hypertension. DISCHARGE MEDICATIONS: 1. DuoNeb q.4 hours as needed for shortness of breath or wheezing. 2. Aspirin 81 mg orally daily. 3. Esomeprazole 40 mg orally daily. 4. Ferrous sulfate 325 mg orally daily. 5. Fluticasone nasal spray 2 sprays twice daily. 6. Levofloxacin 250 mg orally daily for 4 days. 7. Losartan/hydrochlorothiazide one tablet 50 mg/12.5 mg orally daily. 8. Singulair 10 mg orally nightly. 9. Prednisone 20 mg orally daily for 10 days. 10. Pregabalin 150 mg orally nightly. 11. Simvastatin 20 mg orally nightly. 12. VESIcare 5 mg orally twice daily. HISTORY OF PRESENT ILLNESS AND HOSPITAL COURSE: The patient is an 84-year-old female with past medical history of COPD, who presented to the hospital with acute exacerbation. She was managed with scheduled nebulizer treatment, IV antibiotics, and corticosteroids. Her condition gradually improved within 48 hours of her hospital stay. On the day of discharge, the patient was at her baseline respiratory status. Job ID: [id number]
== END 2019-10-01 12:48 | disposition home or self-care (01) ==
LOC: ERS 19:10 → 2SW 21:43
PROVIDERS: ADMIT Family Medicine; ATTEND Family Medicine
DX: J44.1 Chronic obstructive pulmonary disease with (acute) exacerbation (principal); I13.0 Hypertensive heart and chronic kidney disease with heart failure and stage 1 through stage 4 chronic kidney disease, or unspecified chronic kidney disease; E11.22 Type 2 diabetes mellitus with diabetic chronic kidney disease; N18.3 Chronic kidney disease, stage 3 (moderate); I50.9 Heart failure, unspecified; N17.9 Acute kidney failure, unspecified; E87.5 Hyperkalemia; I25.10 Atherosclerotic heart disease of native coronary artery without angina pectoris; E78.5 Hyperlipidemia, unspecified; F41.9 Anxiety disorder, unspecified; E83.42 Hypomagnesemia; K21.9 Gastro-esophageal reflux disease without esophagitis; K44.9 Diaphragmatic hernia without obstruction or gangrene; I35.0 Nonrheumatic aortic (valve) stenosis; Z87.891 Personal history of nicotine dependence; Z79.52 Long term (current) use of systemic steroids; Z79.899 Other long term (current) drug therapy; Z88.0 Allergy status to penicillin; Z88.5 Allergy status to narcotic agent; Z88.8 Allergy status to other drugs, medicaments and biological substances; Z99.3 Dependence on wheelchair
CPT/HCPCS: 36415; 36416; 71045; 80048; 80053; 82550; 82805; 83735; 83880; 85025; 93005; 94640; 94760; 96365; 96375; 96376; G0378; J2920; J2930; J3475; J7611; J7620

== ENCOUNTER 2020-10-05 11:52 | Emergency (ER) | payer MEDICARE, BC ==
[2020-10-05 12:39] LABS: #Basophils 0.1 thou/uL (0.0-0.2); #Eosinphils 0.4 thou/uL (0.0-0.7); #Lymphocytes 1.2 thou/uL (1.20-3.40); #Monocytes 0.3 thou/uL (0.11-0.59); #Neutrophils 2.9 thou/uL (1.40-6.50); %Basophils 1.7 % (0.0-1.0); %Lymphocytes 24.3 % (21.0-51.0); %Monocytes 5.4 % (0.0-10.0); %Neutrophils 59.7 % (42.0-75.0); Hemoglobin 13.5 g/dL (12.0-16.0); Mean Corpuscular HGB CONC 33.9 g/dL (32.0-36.0); Mean Corpuscular Hemoglobin 31.8 pg (27.0-31.0); Mean Corpuscular Volume 93.9 fL (78.0-98.0); Mean Platelet Volume 7.4 fL (7.4-10.4); Platelet Count 172 thou/uL (130-400); RBC Distribution Width 11.3 % (11.5-14.5); Red Blood Cell (RBC) Count 4.23 mill/uL (4.20-5.40); White Blood Cell (WBC) Count 4.9 thou/uL (4.8-10.8)
[2020-10-05] MEDS ORDERED: methylPREDNISolone Sod Succ/PF 125 MG/2 ML VIAL ONE (12:41)
[2020-10-05 13:06] LABS: ALT (SGPT) 9 U/L (8-55); AST (SGOT) 15 U/L (5-34); Alkaline Phosphatase 48 U/L (40-110); Anion Gap 16 mmol/L (10-20); BUN (Urea Nitrogen) 29 mg/dL (9.8-20.1); Calc. Creatinine Clearance 0 mL/min (70-130); Calcium 9.4 mg/dL (7.8-10.44); Carbon Dioxide 23 mmol/L (23-31); Chloride 109 mmol/L (98-107); Globulin 2.8 g/dL (2.4-3.5); Glucose 117 mg/dL (83-110); Lipase 34 U/L (8-78); Potassium 4.8 mmol/L (3.5-5.1); Protein, Total 6.8 g/dL (5.8-8.1); Sodium 143 mmol/L (136-145)
[2020-10-05 14:34] LABS: Bacteria/HPF None Seen HPF (None Seen); Bilirubin Negative (Negative); Blood, Urine Negative (Negative); Clarity Clear (Clear); Glucose, Urine (Dipstick) Normal (Negative); Ketone, Urine Trace mg/dL (Negative); Leukocyte 25 Leu/uL (Negative); Nitrite Negative (Negative); Protein, Urine (Dipstick) Negative (Neg-Trace); RBC/HPF 0-3 HPF (0-3); Specific Gravity, Urine 1.021 (1.002-1.036); Squamous Epithelial 0-3 HPF (0-3); Urobilinogen Normal mg/dL (Less than 2); pH, Urine 5.5 (5.0-9.0)
[2020-10-05 17:06] LABS: SARS-CoV-2 PCR by NAA Not Detected (NotDetected)
== END 2020-10-05 15:07 | disposition home or self-care (01) ==
LOC: ERS 11:52
DX: J18.9 Pneumonia, unspecified organism (principal); J45.909 Unspecified asthma, uncomplicated; N39.0 Urinary tract infection, site not specified; Z20.822 Contact with and (suspected) exposure to COVID-19; E11.9 Type 2 diabetes mellitus without complications; I10 Essential (primary) hypertension; Z87.891 Personal history of nicotine dependence; Z79.899 Other long term (current) drug therapy; Z79.82 Long term (current) use of aspirin
CPT/HCPCS: 71045; 80053; 83690; 83880; 84484; 85025; 87086; 93005; 94640; 96374; 99285; U0003; U0005; 81003; 81015; 87635; J2930

== ENCOUNTER 2020-12-31 23:59 | Emergency (ER) | payer MEDICARE, BC ==
[2021-01-01] MEDS ORDERED: Sodium Bicarb 50 MEQ/50 ML Abboject 8.4% SYRINGE ONE (00:04)
[2021-01-01] MEDS ORDERED: EPINEPHrine 1 MG/10 ML Abboject SYRINGE ONE (00:04)
[2021-01-01] MEDS ORDERED: Calcium Chloride 1 GM/10 ML Abboject SYRINGE ONE (00:04)
== END 2021-01-01 00:09 | disposition expired ==
LOC: ERS 23:59
DX: I46.9 Cardiac arrest, cause unspecified (principal); J44.9 Chronic obstructive pulmonary disease, unspecified; E11.9 Type 2 diabetes mellitus without complications; I10 Essential (primary) hypertension; Z87.891 Personal history of nicotine dependence
CPT/HCPCS: 31500; 92950; 96374; 96375; J0171